=== PATIENT | male | born 1940 | race Caucasian/White ===

== ENCOUNTER → 2016-07-31 | Outpatient (CLI) | payer OTHER, BC ==
[~2016-07-31] VITALS: Ht 167.6 cm; Wt 101.0 kg
[~2016-07-31] MED LIST: APR50 PO; ASCO500T16 PO; ASPI81TA28 PO; ATOR-24 PO; B-COTAB18 PO; CHRO1TAB2 PO; CYM/30 PO; DOCU-94 PO; ERGO1CAP35 PO; ERGO500037 PO; FENO48TA9 PO; FINA5TAB PO; FRS/40 PO; FURO40TA3 PO; GABA1CAP4 PO; GARL400T4 PO; GARL500C5 PO; GLC5 PO; INSDGIPEN SC; INSU50IN SC; INSU50IN3 PO; INSU50IN3 SC; LISI-729 PO; LRS10 PO; MCTP EXT; METO1TAB31 PO; METO25TA3 PO; MULT-506 PO; NRN100 PO; NVLGI/PEN SC; OMEG10007 PO; OMEG120013 PO; OMEGCAP2 PO; OMG3 PO; SOLI5TAB2 PO; ULT50X PO; VTMD PO; ZINC1TAB PO
[2016-07-31 13:12] VITALS: BP 132/78; PULSE 98; Ht 167.6 cm; Wt 101.0 kg
== END | disposition home or self-care (01) ==
LOC: C.NEUR 12:49
PROVIDERS: ATTEND Internal Medicine Pulmonary Disease
DX: G47.30 Sleep apnea, unspecified (principal); E66.9 Obesity, unspecified; I10 Essential (primary) hypertension

== ENCOUNTER → 2016-08-07 | Outpatient (CLI) | payer OTHER, BC ==
[2016-08-07 17:24] LABS: BASO % 0.3 %; BASO ABS # 0.03 K/uL (0-0.2); COMPLETE YES; EOS % 1.5 %; HEMATOCRIT 46.6 % (42-52); IG% 0.2 %; LYMPH ABS # 1.27 K/uL (1.2-3.4); MEAN CELL VOLUME 96.1 fL (80-100); MEAN CORPUSCULAR HGB CONC 34.3 g/dl (32-36); MEAN PLATELET VOLUME 11.8 fL (7.4-10.4); MONO % 11.4 %; NEUT % 72.6 %; PLATELET COUNT 202 K/uL (130-400); RED BLOOD COUNT 4.85 M/uL (4.7-6.1)
[2016-08-07 17:59] LABS: BLOOD UREA NITROGEN 45 mg/dl (7-18); BUN/CREATININE RATIO 19.7 (10-20); CARBON DIOXIDE 30 mmol/L (21-32); CHLORIDE 104 mmol/L (98-107); GLUCOSE 151 mg/dl (70-99); POTASSIUM 5.1 mmol/L (3.5-5.1); SODIUM 142 mmol/L (136-145)
[2016-08-08 06:41] LABS: ESTIMATED AVERAGE GLUCOSE 183 mg/dl; HA1C FLAG Normal (Normal)
--- NOTE | 2016-08-14 10:04 | CODING QUERY MEDICAL NECESSITY ---
SUPPORTING DIAGNOSIS NEEDED A supporting diagnosis is required for the test/procedure performed on this patient in order for us to be reimbursed by the patient's insurance. Please provide a supporting diagnosis for the following test/procedure listed below next to the test name along with your signature. *If there is no additional diagnosis for this patient that would support the following test/procedure please document that below next to the test/procedure. Test(s)/Procedure(s) that require a supporting diagnosis: DOS 08/07 * Vitamin B12 DIAGNOSIS: Provider Signature: Date: Thank you Delores Boateng Health Information Management Once completed, please kindly fax back to [phone] For questions please call [phone]
== END | disposition home or self-care (01) ==
LOC: C.LABPBG 15:16
PROVIDERS: ATTEND Internal Medicine Geriatric Medicine
DX: I12.9 Hypertensive chronic kidney disease with stage 1 through stage 4 chronic kidney disease, or unspecified chronic kidney disease (principal); N18.3 Chronic kidney disease, stage 3 (moderate); E55.9 Vitamin D deficiency, unspecified; E11.42 Type 2 diabetes mellitus with diabetic polyneuropathy; M54.5 Low back pain

== ENCOUNTER 2016-08-25 12:13 | Inpatient (IN) | payer OTHER, BC ==
[~2016-08-25] VITALS: Ht 167.6 cm; Wt 93.7 kg
[~2016-08-25 12:13] MED LIST changes: -APR50 PO; -ASCO500T16 PO; -B-COTAB18 PO; -DOCU-94 PO; -ERGO1CAP35 PO; -ERGO500037 PO; -FURO40TA3 PO; -GABA1CAP4 PO; -GARL400T4 PO; -GLC5 PO; -INSDGIPEN SC; -INSU50IN SC; -INSU50IN3 PO; -LRS10 PO; -MCTP EXT; -METO1TAB31 PO; -NRN100 PO; -NVLGI/PEN SC; -OMEG120013 PO; -OMEGCAP2 PO; -OMG3 PO; -ULT50X PO; -ZINC1TAB PO
[2016-08-25] MEDS ORDERED: SODIUM CHLORIDE 0.9% 1000ML 1,000 ML IV STA (12:32)
[2016-08-25] MEDS ORDERED: SODIUM CHLORIDE 0.9% 1000ML 500 ML IV STA (12:32)
--- NOTE | 2016-08-25 13:03 | EMERGENCY ROOM VISIT NOTE ---
History Report prepared by Jackeline: Stephan Quintanilla Under the Supervision of: Dr. Michel See M.D. First contact with patient: 12:26 Chief Complaint: FALL Stated Complaint: FREQUENT FALLS/ EVAL History of Present Illness The patient is a 76 year old male who presents to the Emergency Room for evaluation of multiple falls occurring over the past week. Per nursing staff, the patient has had five falls this week. She states that his most recent fall was last night when he was bending over to feed his dog. The patient notes that he his head on the fall last night, but did not lose consciousness. He has a history of diabetes and states that he has had a lot of trouble keep his sugars down lately. He also complains of increased weakness, especially in his legs. The patient denies any neck pain, urinary symptoms, fever, or vomiting. He has no history of stroke. He notes that he lives alone. Source of History: patient Onset: past week Quality: other (falls) Timing: other (episodes) Associated Symptoms: + weakness (generalized, especially in the legs), No fevers, No neck pain, No urinary symptoms, No vomiting Review of Systems See HPI for pertinent positives & negatives. A total of 10 systems reviewed and were otherwise negative. Past Medical & Surgical Medical Problems: (1) ARF (acute renal failure) (2) Enlarged prostate (3) Hepatitis (4) Type II diabetes mellitus Family History Diabetes mellitus Heart disease Hypertension Social History Smoking Status: Former Smoker Alcohol Use: none Drug Use: none Marital Status: Housing Status: lives alone Occupation Status: retired Current/Historical Medications Scheduled Aspirin (Aspirin Ec), 81 MG PO HS Atorvastatin (Lipitor), 40 MG PO QAM B-Complex Vitamins (Vitamin B Complex), 1 TAB PO DAILY Chromium (Chromium), 1 TAB PO QAM Duloxetine HCl (Cymbalta), 1 CAP PO DAILY Ergocalciferol (Vitamin D), 1 CAP PO MONTHLY Fenofibrate (Tricor), 48 MG PO DAILY Finasteride (Proscar), 5 MG PO DAILY Fish Oil ([place]-3), 1 CAP PO DAILY Furosemide (Lasix), 40 MG PO DAILY Garlic (Garlic), 1 CAP PO DAILY Insulin Lispro Protamine & Lis (Humalog Mix 50/50 Kwikpen), 60 UNITS SC QAM Insulin Lispro Protamine & Lis (Humalog Mix 50/50), 75 UNITS SC QPM Lisinopril (Zestril), 5 MG PO DAILY Metoprolol Succ (Toprol Xl) (Toprol-Xl), 25 MG PO DAILY Multivitamin (Multivitamin), 1 TAB PO DAILY Solifenacin Succinate (Vesicare), 5 MG PO DAILY Allergies Coded Allergies: No Known Allergies (Unverified , 08/25/16) Physical Exam Vital Signs Date Time Temp Pulse Resp B/P Pulse Ox O2 Delivery O2 Flow Rate FiO2 08/25/16 14:06 98 18 160/105 99 Room Air 08/25/16 13:53 96 08/25/16 12:21 36.7 100 18 163/83 99 Room Air Physical Exam GENERAL: Patient is in no acute distress. HEENT: No acute trauma, normocephalic atraumatic, mucous membranes moist, no nasal congestion, no scleral icterus. NECK: No stridor, no adenopathy, no meningismus, trachea is midline. LUNGS: Clear to auscultation bilaterally, no wheeze, no rhonchi, breath sounds equal. HEART: Without murmurs gallops or rubs, regular rate and rhythm. ABDOMEN: Soft, nontender, bowel sounds positive, no hernias, no peritonitis. EXTREMITIES: No cyanosis or edema, full range of motion of all the joints without pain or difficulty, no signs for acute trauma. NEUROLOGIC: Oriented x 3, no acute motor or sensory deficits, no focal weakness. SKIN: No rash, no jaundice, no diaphoresis. Medical Decision & Procedures ER Provider Diagnostic Interpretation: X ray results and stated below per my interpretation and radiologist interpretation. Other radiology results and stated below per my review and radiologist interpretation: CT SCAN OF THE BRAIN WITHOUT IV CONTRAST FINDINGS: Brain parenchyma: There are age-related involutional changes noting mild subcortical and periventricular microangiopathic change. There is no hemorrhage, mass effect, or evidence of acute territorial ischemia by CT criteria. Clark-white matter is preserved. No extra-axial fluid collection is seen. Ventricles, sulci, cisterns: Prominent secondary to involutional change. Intracranial vasculature: There is atherosclerotic calcification of the cavernous carotid and vertebral arteries. Calvarium: Unremarkable. A sebaceous cyst is incidentally noted in the suboccipital scalp. Sinuses and mastoids: The visualized paranasal sinuses are clear. The mastoid air cells are well pneumatized. Orbits: The bony orbits are grossly intact. There are bilateral ocular lens implants. IMPRESSION: There is no hemorrhage, mass effect, or evidence of acute territorial ischemia by CT criteria. Electronically signed by: Michel Dickerson M.D. SINGLE VIEW CHEST FINDINGS: An AP, portable, upright chest radiograph is compared to study dated 03/23/2015. The heart is enlarged and there is atherosclerotic calcification of the thoracic aorta. The pulmonary vasculature is noncongested. Chronic elevation of the right hemidiaphragm and interstitial thickening are similar to previous. There is no evidence of airspace consolidation or pleural effusion. No pneumothorax is seen. The skeletal structures are osteopenic. Degenerative changes noted throughout the thoracic spine. IMPRESSION: Cardiac enlargement with no acute cardiopulmonary abnormality. Electronically signed by: Michel Dickerson M.D. Laboratory Results 08/25/16 13:04 Red Blood Count 4.99, Mean Corpuscular Volume 94.6, Mean Corpuscular Hemoglobin 33.5, Mean Corpuscular Hemoglobin Concent 35.4, Mean Platelet Volume 11.5, Neutrophils (%) (Auto) 78.1, Lymphocytes (%) (Auto) 9.1, Monocytes (%) (Auto) 12.2, Eosinophils (%) (Auto) 0.2, Basophils (%) (Auto) 0.2, Neutrophils # (Auto ) 8.34, Lymphocytes # (Auto) 0.97, Monocytes # (Auto) 1.30, Eosinophils # (Auto ) 0.02, Basophils # (Auto) 0.02 08/25/16 13:04 Test 08/25/16 12:23 08/25/16 13:04 08/25/16 14:00 Bedside Glucose 271 mg/dl (70-99) White Blood Count 10.67 K/uL (4.8-10.8) Red Blood Count 4.99 M/uL (4.7-6.1) Hemoglobin 16.7 g/dL (14.0-18.0) Hematocrit 47.2 % (42-52) Mean Corpuscular Volume 94.6 fL (80-100) Mean Corpuscular Hemoglobin 33.5 pg (25-34) Mean Corpuscular Hemoglobin Concent 35.4 g/dl (32-36) Platelet Count 227 K/uL (130-400) Mean Platelet Volume 11.5 fL (7.4-10.4) Neutrophils (%) (Auto) 78.1 % Lymphocytes (%) (Auto) 9.1 % Monocytes (%) (Auto) 12.2 % Eosinophils (%) (Auto) 0.2 % Basophils (%) (Auto) 0.2 % Neutrophils # (Auto) 8.34 K/uL (1.4-6.5) Lymphocytes # (Auto) 0.97 K/uL (1.2-3.4) Monocytes # (Auto) 1.30 K/uL (0.11-0.59) Eosinophils # (Auto) 0.02 K/uL (0-0.5) Basophils # (Auto) 0.02 K/uL (0-0.2) RDW Standard Deviation 45.5 fL (36.4-46.3) RDW Coefficient of Variation 13.2 % (11.5-14.5) Immature Granulocyte % (Auto) 0.2 % Immature Granulocyte # (Auto) 0.02 K/uL (0.00-0.02) Prothrombin Time 10.9 SECONDS (9.0-12.0) Prothromb Time International Ratio 1.0 (0.9-1.1) Activated Partial Thromboplast Time 24.5 SECONDS (21.0-31.0) Partial Thromboplastin Ratio 0.9 Anion Gap 10.0 mmol/L (3-11) Est Creatinine Clear Calc Drug Dose 23.1 ml/min Estimated GFR () 22.7 Estimated GFR (Non- 19.6 BUN/Creatinine Ratio 23.8 (10-20) Estimated Average Glucose 180 mg/dl Hemoglobin A1c 7.9 % (4.5-5.6) Calcium Level 9.2 mg/dl (8.5-10.1) Total Bilirubin 0.6 mg/dl (0.2-1) Aspartate Amino Transf (AST/SGOT) 42 U/L (15-37) Alanine Aminotransferase (ALT/SGPT) 37 U/L (12-78) Alkaline Phosphatase 54 U/L (45-117) Total Creatine Kinase 908 U/L (39-308) Troponin I < 0.015 ng/ml (0-0.045) Total Protein 7.5 gm/dl (6.4-8.2) Albumin 3.8 gm/dl (3.4-5.0) Globulin 3.7 gm/dl (2.5-4.0) Albumin/Globulin Ratio 1.0 (0.9-2) Thyroid Stimulating Hormone (TSH) 1.790 uIu/ml (0.300-4.500) Urine Color YELLOW Urine Appearance CLEAR (CLEAR) Urine pH 5.5 (4.5-7.5) Urine Specific [place] 1.011 (1.000-1.030) Urine Protein NEG (NEG) Urine Glucose (UA) 1+ (NEG) Urine Ketones NEG (NEG) Urine Occult Blood TRACE (NEG) Urine Nitrite NEG (NEG) Urine Bilirubin NEG (NEG) Urine Urobilinogen NEG (NEG) Urine Leukocyte Esterase NEG (NEG) Urine WBC (Auto) 0 /hpf (0-5) Urine RBC (Auto) 0-4 /hpf (0-4) Urine Hyaline Casts (Auto) 0 /lpf (0-5) Urine Epithelial Cells (Auto) 0-5 /lpf (0-5) Urine Bacteria (Auto) NEG (NEG) Laboratory results reviewed by me. Medications Administered Medications (Trade) Dose Ordered Sig/Ramana Route Start Time Stop Time Status Last Admin Dose Admin Sodium Chloride 500 ml @ 999 mls/hr Q31M STAT IV 08/25/16 12:32 08/25/16 13:02 DC 08/25/16 13:08 999 MLS/HR Sodium Chloride (Nss 1000ml) 1,000 ml @ 200 mls/hr Q5H STAT IV 08/25/16 12:32 08/25/16 16:30 DC 08/25/16 13:08 200 MLS/HR ECG Indication: weakness Rate (beats per minute): 100 Rhythm: normal sinus Findings: RBBB, no acute ischemic change, no ectopy ED Course 1229: The patient was evaluated in room B7. A complete history and physical exam was performed. 1232: Ordered Sodium Chloride 1000 ml @ 200 mls/hr IV, Sodium Chloride 500 ml @ 999 mls/hr IV. 1401: Upon reexamination the patient is resting comfortably. I discussed results and treatment plan with the patient. He verbalizes agreement and understanding. The patient will be evaluated for further management. Medical Decision The patient is a 76 year old male who presents to the ED with complaints of multiple falls. Differential diagnoses considered include dehydration, UTI, infection, intracranial bleeding, anemia, electrolyte imbalance, thyroid disorder, stroke, debilitation, as well as other etiologies were considered There is no leukocytosis or concerning anemia. Renal panel testing shows dehydration with acute renal failure. There was no hepatitis. The patient appears to be in a euthyroid state. Urinalysis does not show infection. EKG shows a normal sinus rhythm with a right bundle branch block, no acute ischemia. Cardiac enzyme testing times one is not consistent with acute cardiac injury. Chest film does not show pneumonia or CHF. Brain CT shows no acute bleed or mass effect. On exam, there were no focal neurologic deficits to suggest stroke. Patient appeared dehydrated clinically and by laboratory testing. I think this is a good part of why he feels so weak and why he is falling. He was given IV saline. The patient is not functioning well at home. With the acute renal failure and dehydration, admission/observation is warranted. I spoke to the patient and case management. The on-call hospitalist was consulted. Consults Time Called: 1345 Consulting Physician: Dr. Jonnathan SETHI Returned Call: 1401 Discussed the patient's case. The patient will be evaluated for further management. Impression Primary Impression: Acute renal failure Additional Impressions: Frequent falls Weakness Scribe Attestation The scribe's documentation has been prepared under my direction and personally reviewed by me in its entirety. I confirm that the note above accurately reflects all work, treatment, procedures, and medical decision making performed by me. Departure Information Dispostion Being Evaluated By Hospitalist Referrals Corey Craven M.D. (PCP) Patient Instructions My [facility] Problem Qualifiers
--- NOTE | 2016-08-25 13:12 | DIAGNOSTIC IMAGING REPORT ---
SINGLE VIEW CHEST CLINICAL HISTORY: Weakness. Change in mental status. FINDINGS: An AP, portable, upright chest radiograph is compared to study dated 03/23/2015. The heart is enlarged and there is atherosclerotic calcification of the thoracic aorta. The pulmonary vasculature is noncongested. Chronic elevation of the right hemidiaphragm and interstitial thickening are similar to previous. There is no evidence of airspace consolidation or pleural effusion. No pneumothorax is seen. The skeletal structures are osteopenic. Degenerative changes noted throughout the thoracic spine. IMPRESSION: Cardiac enlargement with no acute cardiopulmonary abnormality. Electronically signed by: Michel Dickerson M.D. 08/25/2016 1:11 PM Dictated Date/Time: 08/25/2016 1:09 PM
[2016-08-25 13:20] LABS: BASO % 0.2 %; BASO ABS # 0.02 K/uL (0-0.2); COMPLETE YES; EOS % 0.2 %; HEMATOCRIT 47.2 % (42-52); IG% 0.2 %; LYMPH % 9.1 %; LYMPH ABS # 0.97 K/uL (1.2-3.4); MEAN CELL VOLUME 94.6 fL (80-100); MEAN CORPUSCULAR HEMOGLOBIN 33.5 pg (25-34); MEAN CORPUSCULAR HGB CONC 35.4 g/dl (32-36); MEAN PLATELET VOLUME 11.5 fL (7.4-10.4); MONO % 12.2 %; NEUT % 78.1 %; PLATELET COUNT 227 K/uL (130-400); RED BLOOD COUNT 4.99 M/uL (4.7-6.1); WHITE BLOOD COUNT 10.67 K/uL (4.8-10.8)
[2016-08-25 13:35] LABS: ALT/SGPT 37 U/L (12-78); AST/SGOT 42 U/L (15-37); BLOOD UREA NITROGEN 71 mg/dl (7-18); BUN/CREATININE RATIO 23.8 (10-20); CALCIUM 9.2 mg/dl (8.5-10.1); CARBON DIOXIDE 24 mmol/L (21-32); CHLORIDE 106 mmol/L (98-107); GLUCOSE 204 mg/dl (70-99); POTASSIUM 5.2 mmol/L (3.5-5.1); SODIUM 140 mmol/L (136-145)
[2016-08-25] MEDS ORDERED: B-COTAB18 PO (13:37)
[2016-08-25] MEDS ORDERED: INSU50IN SC (13:37)
--- NOTE | 2016-08-25 13:39 | DIAGNOSTIC IMAGING REPORT ---
CT SCAN OF THE BRAIN WITHOUT IV CONTRAST CLINICAL HISTORY: Change in mental status. COMPARISON STUDY: MRI of the brain dated 10/22/2014. TECHNIQUE: Unenhanced axial CT scan of the brain is performed from the vertex to the skull base. CT DOSE: 614.27 mGy.cm FINDINGS: Brain parenchyma: There are age-related involutional changes noting mild subcortical and periventricular microangiopathic change. There is no hemorrhage, mass effect, or evidence of acute territorial ischemia by CT criteria. Clark-white matter is preserved. No extra-axial fluid collection is seen. Ventricles, sulci, cisterns: Prominent secondary to involutional change. Intracranial vasculature: There is atherosclerotic calcification of the cavernous carotid and vertebral arteries. Calvarium: Unremarkable. A sebaceous cyst is incidentally noted in the suboccipital scalp. Sinuses and mastoids: The visualized paranasal sinuses are clear. The mastoid air cells are well pneumatized. Orbits: The bony orbits are grossly intact. There are bilateral ocular lens implants. IMPRESSION: There is no hemorrhage, mass effect, or evidence of acute territorial ischemia by CT criteria. Electronically signed by: Michel Dickerson M.D. 08/25/2016 1:38 PM Dictated Date/Time: 08/25/2016 1:36 PM
[2016-08-25 13:42] LABS: PARTIAL THROMBOPLASTIN RATIO 0.9; PROTHROMBIN TIME (PATIENT) 10.9 SECONDS (9.0-12.0)
[2016-08-25 13:46] LABS: ALKALINE PHOSPHATASE 54 U/L (45-117)
[2016-08-25 14:11] LABS: URINE APPEARANCE CLEAR (CLEAR); URINE BILIRUBIN NEG (NEG); URINE COLOR YELLOW; URINE EPITHELIAL CELL AUTO 0-5 /lpf (0-5); URINE NITRITE NEG (NEG); URINE PH 5.5 (4.5-7.5); URINE SPECIFIC GRAVITY 1.011 (1.000-1.030); UROBILINOGEN NEG (NEG); ZZURINE CULT IF INDIC CATH NO
[2016-08-25 14:12] LABS: MANUAL MICROSCOPIC REQUIRED? NO; REVIEW REQ? NO
[2016-08-25] MEDS ORDERED: POLYETHYLENE (MIRALAX) 17 GM PACK PO PRN (14:30)
[2016-08-25] MEDS ORDERED: MAGNESIUM HYDROXIDE SUSP 30 ML UDC PO PRN (14:30)
[2016-08-25] MEDS ORDERED: ALUMINUM/MAGNESIUM/SIMETH (MAALOX MAX) 30 ML UDC PO PRN (14:30)
[2016-08-25] MEDS ORDERED: ONDANSETRON INJ 2 MG/ML 2 ML VIAL IV PRN (14:30)
[2016-08-25 14:57] LABS: ESTIMATED AVERAGE GLUCOSE 180 mg/dl; HA1C FLAG Normal (Normal)
[2016-08-25] MEDS ORDERED: GLUCAGON FOR INJ 1 MG VIAL SQ PRN (15:45)
[2016-08-25] MEDS ORDERED: GLUCOSE 10 TABS/TUBE PO PRN (15:45)
[2016-08-25] MEDS ORDERED: DEXTROSE 50% 50 ML SYR IV PRN (15:45)
[2016-08-25] MEDS ORDERED: GLUCOSE 40% GEL 15 GM TUBE PO PRN (15:45)
--- NOTE | 2016-08-25 16:04 | HISTORY & PHYSICAL EXAMINATION ---
DATE OF ADMISSION: 08/25/2016 CHIEF COMPLAINT: Fall. HISTORY OF PRESENT ILLNESS: A 76-year-old male who resides at home, comes to Emergency Room for evaluation of multiple falls that occurred over past week. As per ER records, the patient had about 5 falls this week. It states that most recent fall was last night when he was bending over to feed his dog. The patient noted that when he fell last night, he did not lose consciousness. He has history of diabetes and he had trouble keeping his sugars down lately. He also has increased weakness, especially in his legs to the point where he cannot walk. He denies any fever, urinary symptoms, neck pain, vomiting, diarrhea, nausea. He lives alone. REVIEW OF SYSTEMS: Negative except as above. Ten out of 14 systems were reviewed. PAST MEDICAL HISTORY: Significant for BPH, hepatitis, type 2 diabetes. FAMILY HISTORY: Diabetes, heart disease. SOCIAL HISTORY: Does not smoke. Does not drink. Does not use drugs. Lives alone. ALLERGIES: He has no known allergies. CURRENT MEDICATIONS: Aspirin 81 mg p.o. daily, atorvastatin 40 mg p.o. daily, B complex 1 tablet p.o. daily, chromium 1 tablet p.o. daily, duloxetine 1 capsule p.o. daily, ergocalciferol 1 capsule p.o. monthly, fenofibrate 48 mg p.o. daily, finasteride 5 mg p.o. daily, fish oil 1 capsule p.o. daily, Furosemide 40 mg p.o. daily, garlic 1 capsule p.o. daily, Humalog 50/50 KwikPen 60 units in the morning and 75 units at night, lisinopril 5 mg daily, Toprol-XL 25 mg p.o. daily, multivitamin 1 tablet p.o. daily, solifenacin 5 mg p.o. daily. PHYSICAL EXAMINATION: VITAL SIGNS: Temperature 36.7, pulse 98, respirations 18, blood pressure 160/105, 99% on room air. GENERAL: Not in acute distress. HEENT: Normocephalic, atraumatic. PERRLA, EOMI. Mouth moist, no lesions. NECK: No JVD. Trachea midline. Thyroid is not enlarged. LUNGS: Clear to auscultation bilateral. No wheezes, no rhonchi. HEART: S1, S2. RRR. ABDOMEN: Soft, nontender, nondistended. Bowel sounds present bilateral. EXTREMITIES: No clubbing, cyanosis, edema. NEUROLOGICAL: Alert, oriented x3. Motor sensory normal. Deep tendon reflexes 2+ bilateral. SKIN: No rash. No jaundice. DIAGNOSTIC INTERPRETATION: CT scan of the head - no hemorrhage, no acute stroke. Chest x-ray - cardiac enlargement, no acute cardiopulmonary abnormality. LABS: CBC is normal. BMP: Sodium 140, potassium 5.2, chloride 106, CO2 of 24, BUN of 71, creatinine of 3.0, glucose of 204. Calcium 9.2, total bili 0.6. LFTs normal. Total protein 7.5, troponin less than 0.015. TSH 1.79. EK beats per minute, normal sinus rhythm, right bundle branch block, no acute ST/T wave changes. ASSESSMENT AND PLAN: This is a 76-year-old male who comes to Emergency Room for evaluation of multiple falls. 1. Multiple falls, likely related to dehydration. Fall precautions, physical therapy, Occupational therapy evaluation and start normal saline for hydration. Hold Lasix. 2. Acute renal failure with creatinine of 3.0, baseline is 1.6, likely secondary to prerenal azotemia. We will start patient on normal saline at 125 mL per hour and monitor creatinine. Possible enlarged prostate. We will insert Ervin catheter tip. Hold BOAZ inhibitor and aspirin. 3. Type 2 diabetes mellitus, unknown hemoglobin A1c, which we will check. The patient was on 50/50 KwikPen Humalog taken 60 units in the morning and 75 units at night. Will start patient on Glargine 30 units twice a day and sliding scale as well as will check sugars before meals plus at bedtime. 4. History of benign prostatic hypertrophy. Continue Proscar, insert Ervin catheter. 5. Uncontrolled HTN, hold BOAZ, continue Bblockers, Hydralazine IV Prn sbp>150 mmhg. 6. Deep vein thrombosis and gastrointestinal prophylaxis. The patient is a full code. TIME SPENT ON DOING THIS ADMISSION: 40 minutes. SUMEET
--- NOTE | 2016-08-25 16:06 | DIAGNOSTIC IMAGING REPORT ---
ULTRASOUND KIDNEYS AND BLADDER CLINICAL HISTORY: Frequent falls. Unspecified obstruction. COMPARISON STUDY: Abdominal ultrasound dated 11/02/2013. TECHNIQUE: Real-time, grayscale, and color flow sonography of the kidneys and bladder is performed. Images are reviewed in the transverse and longitudinal planes. FINDINGS: Kidneys: The kidneys are atrophic. The right kidney measures 10.6 cm in length and the left kidney measures 10.7 cm in length. There is no hydronephrosis. No shadowing renal calculi are identified. There is no sonographic evidence of solid mass lesion. A 3.6 cm cyst is noted in the left lower pole. This was also seen in 2013. No perinephric fluid is identified. Bladder: The bladder is normal in appearance. Bilateral ureteral jets were seen. IMPRESSION: 1. The kidneys are atrophic and without hydronephrosis. 2. The bladder is normal as visualized. Electronically signed by: Michel Dickerson M.D. 08/25/2016 4:05 PM Dictated Date/Time: 08/25/2016 4:03 PM
[2016-08-25 16:32] VITALS: BP 161/90; PULSE 102; TEMP 36.6; O2SAT 94; Ht 167.6 cm; Wt 93.7 kg
[2016-08-25] MEDS: SODIUM CHLORIDE 0.45% 1000ML 1,000 ML IV SCH ×2 (17:13→22:02)
[2016-08-25] MEDS ORDERED: MICONAZOLE NITRATE POWDER 43 GM EXT PRN (17:45)
[2016-08-25] MEDS ORDERED: NURSING DECISION MEDICATION ORDER SCH (17:45)
[2016-08-25] MEDS: INSULIN ASPART 100 UNITS/ML 3 ML PEN SC SCH ×2 (17:52→20:40)
[2016-08-25] MEDS ORDERED: INSULIN GLARGINE PER UNIT 30 UNITS in SYRINGE 0 ML SC SCH (21:00)
[2016-08-25] MEDS ORDERED: INSULIN GLARGINE PER SC SCH (21:00)
[2016-08-25] MEDS: ASPIRIN 81 MG ECTAB PO SCH (21:21)
[2016-08-25] MEDS: INSULIN GLARGINE SOLOSTAR 100 UNITS/ML 3 ML PEN SC SCH (21:23)
[2016-08-25] MEDS: HEPARIN SOD 5000 UNIT/0.5 ML CARP SQ SCH (21:24)
[2016-08-25] MEDS ORDERED: LORAZEPAM 0.5 MG TAB ONE (21:58)
[2016-08-25] MEDS ORDERED: NURSING VERBAL MED ORDER ONE ×2 (22:00→23:00)
[2016-08-25] MEDS: LORAZEPAM 0.5 MG TAB PO PRN (22:02)
[2016-08-25 22:59] VITALS: BP 167/83; PULSE 80; TEMP 36.5; O2SAT 94
[2016-08-25] MEDS ORDERED: DiphenhydrAMINE HCL 50 MG/ML VIAL ONE (22:59)
[2016-08-25] MEDS ORDERED: DiphenhydrAMINE HCL 50 MG/ML VIAL IV STA (23:00)
[2016-08-25] MEDS ORDERED: LORAZEPAM 0.5 MG TAB PO STA (23:00)
[2016-08-26] MEDS ORDERED: PRAMIPEXOLE DIHYDROCHLORIDE 0.25MG TAB PO STA (01:00)
[2016-08-26] MEDS ORDERED: ACETAMINOPHEN IV 100 ML IV PRN (01:00)
[2016-08-26] MEDS ORDERED: HALOPERIDOL LACTATE 5 MG/ML 1 ML VIAL IM STA (02:51)
[2016-08-26] MEDS ORDERED: NURSING VERBAL MED ORDER ONE (03:00)
[2016-08-26] MEDS: HEPARIN SOD 5000 UNIT/0.5 ML CARP SQ SCH ×3 (05:32→21:21)
[2016-08-26] MEDS: SODIUM CHLORIDE 0.45% 1000ML 1,000 ML IV SCH ×3 (05:32→21:34)
[2016-08-26] MEDS: DULOXETINE (CYMBALTA) 30 MG CAP PO SCH (07:43)
[2016-08-26] MEDS: MULTIVITAMIN TAB PO SCH (07:44)
[2016-08-26] MEDS: FENOFIBRATE 48 MG TAB PO SCH (07:44)
[2016-08-26] MEDS: FINASTERIDE 5 MG TAB PO SCH (07:44)
[2016-08-26] MEDS: METOPROLOL SUCC 25MG EXT REL TAB PO SCH (07:45)
[2016-08-26 08:19] VITALS: BP_SYST 171; BP_SYST 201; BP_DIAS 94; BP_DIAS 95; PULSE 102; TEMP 36.5; O2SAT 96
[2016-08-26 08:46] LABS: BASO % 0.3 %; BASO ABS # 0.03 K/uL (0-0.2); COMPLETE YES; EOS % 0.6 %; HEMATOCRIT 47.3 % (42-52); IG% 0.1 %; LYMPH ABS # 0.92 K/uL (1.2-3.4); MEAN CELL VOLUME 92.4 fL (80-100); MEAN CORPUSCULAR HEMOGLOBIN 32.4 pg (25-34); MEAN CORPUSCULAR HGB CONC 35.1 g/dl (32-36); MEAN PLATELET VOLUME 11.3 fL (7.4-10.4); MONO % 10.9 %; NEUT % 79.1 %; PLATELET COUNT 214 K/uL (130-400); RED BLOOD COUNT 5.12 M/uL (4.7-6.1); WHITE BLOOD COUNT 10.23 K/uL (4.8-10.8)
[2016-08-26] MEDS: INSULIN ASPART 100 UNITS/ML 3 ML PEN SC SCH ×4 (08:57→21:00)
[2016-08-26] MEDS: INSULIN GLARGINE SOLOSTAR 100 UNITS/ML 3 ML PEN SC SCH ×2 (08:58→21:21)
[2016-08-26] MEDS ORDERED: ATORVASTATIN 40 MG TAB PO SCH (09:00)
[2016-08-26 09:18] LABS: BUN/CREATININE RATIO 23.1 (10-20); CALCIUM 8.9 mg/dl (8.5-10.1); CREATININE 2.1 mg/dl (0.60-1.40); POTASSIUM 4.4 mmol/L (3.5-5.1)
[2016-08-26] MEDS ORDERED: GABAPENTIN 100 MG CAP PO ONE (11:45)
--- NOTE | 2016-08-26 12:40 | Progress Note ---
Subjective Date of Service: Aug 26, 2016. Subjective Pt evaluation today including: conversation w/ patient, physical exam, chart review, lab review, review of studies, review of inpatient medication list Patient seen and evaluated. Complaining of lower extremity pain weakness and was agitated overnight. Received Haldol, Benadryl, Ativan and did not sleep through the night. Currently is excessively drowsy. Does respond when he chooses to questions and follows commands. ROS deferred as patient intermittently will say yes/no but cooperation is limited. Problem List Medical Problems: (1) Acute renal failure Status: Acute (2) Frequent falls Status: Acute (3) Weakness Status: Acute Review of Systems Deferred due to excessive drowsiness. See HPI. Objective Vital Signs Date Time Temp Pulse Resp B/P Pulse Ox O2 Delivery O2 Flow Rate FiO2 08/26/16 08:19 36.5 102 18 201/94 96 Room Air 171/95 08/26/16 08:00 Room Air 08/26/16 00:00 Room Air 08/25/16 22:59 36.5 80 20 167/83 94 Room Air 08/25/16 20:00 Room Air 08/25/16 16:32 36.6 102 12 161/90 94 Room Air 08/25/16 15:15 102 18 157/89 98 Room Air 08/25/16 14:06 98 18 160/105 99 Room Air 08/25/16 13:53 96 Physical Exam General Appearance: WD/WN, no apparent distress Eyes: sclerae normal Neck: supple, no JVD, trachea midline Respiratory/Chest: lungs clear, normal breath sounds, no respiratory distress, no accessory muscle use Cardiovascular: regular rate, rhythm, no gallop, no murmur Abdomen: normal bowel sounds, non tender, soft Extremities: no pedal edema Neurologic/Psychiatric: + pertinent finding (drowsy) Skin: normal color, warm/dry Laboratory Results Last 24 Hours Test 08/25/16 13:04 08/25/16 14:00 08/25/16 16:47 08/25/16 20:30 White Blood Count 10.67 K/uL Red Blood Count 4.99 M/uL Hemoglobin 16.7 g/dL Hematocrit 47.2 % Mean Corpuscular Volume 94.6 fL Mean Corpuscular Hemoglobin 33.5 pg Mean Corpuscular Hemoglobin Concent 35.4 g/dl Platelet Count 227 K/uL Mean Platelet Volume 11.5 fL Neutrophils (%) (Auto) 78.1 % Lymphocytes (%) (Auto) 9.1 % Monocytes (%) (Auto) 12.2 % Eosinophils (%) (Auto) 0.2 % Basophils (%) (Auto) 0.2 % Neutrophils # (Auto) 8.34 K/uL Lymphocytes # (Auto) 0.97 K/uL Monocytes # (Auto) 1.30 K/uL Eosinophils # (Auto) 0.02 K/uL Basophils # (Auto) 0.02 K/uL RDW Standard Deviation 45.5 fL RDW Coefficient of Variation 13.2 % Immature Granulocyte % (Auto) 0.2 % Immature Granulocyte # (Auto) 0.02 K/uL Prothrombin Time 10.9 SECONDS Prothromb Time International Ratio 1.0 Activated Partial Thromboplast Time 24.5 SECONDS Partial Thromboplastin Ratio 0.9 Sodium Level 140 mmol/L Potassium Level 5.2 mmol/L Chloride Level 106 mmol/L Carbon Dioxide Level 24 mmol/L Anion Gap 10.0 mmol/L Blood Urea Nitrogen 71 mg/dl Creatinine 3.00 mg/dl Est Creatinine Clear Calc Drug Dose 23.1 ml/min Estimated GFR () 22.7 Estimated GFR (Non- 19.6 BUN/Creatinine Ratio 23.8 Random Glucose 204 mg/dl Estimated Average Glucose 180 mg/dl Hemoglobin A1c 7.9 % Calcium Level 9.2 mg/dl Total Bilirubin 0.6 mg/dl Aspartate Amino Transf (AST/SGOT) 42 U/L Alanine Aminotransferase (ALT/SGPT) 37 U/L Alkaline Phosphatase 54 U/L Total Creatine Kinase 908 U/L Troponin I < 0.015 ng/ml Total Protein 7.5 gm/dl Albumin 3.8 gm/dl Globulin 3.7 gm/dl Albumin/Globulin Ratio 1.0 Thyroid Stimulating Hormone (TSH) 1.790 uIu/ml Urine Color YELLOW Urine Appearance CLEAR Urine pH 5.5 Urine Specific Boelus 1.011 Urine Protein NEG Urine Glucose (UA) 1+ Urine Ketones NEG Urine Occult Blood TRACE Urine Nitrite NEG Urine Bilirubin NEG Urine Urobilinogen NEG Urine Leukocyte Esterase NEG Urine WBC (Auto) 0 /hpf Urine RBC (Auto) 0-4 /hpf Urine Hyaline Casts (Auto) 0 /lpf Urine Epithelial Cells (Auto) 0-5 /lpf Urine Bacteria (Auto) NEG Bedside Glucose 103 mg/dl 178 mg/dl Test 08/26/16 07:50 08/26/16 07:58 08/26/16 11:34 Bedside Glucose 138 mg/dl 151 mg/dl White Blood Count 10.23 K/uL Red Blood Count 5.12 M/uL Hemoglobin 16.6 g/dL Hematocrit 47.3 % Mean Corpuscular Volume 92.4 fL Mean Corpuscular Hemoglobin 32.4 pg Mean Corpuscular Hemoglobin Concent 35.1 g/dl Platelet Count 214 K/uL Mean Platelet Volume 11.3 fL Neutrophils (%) (Auto) 79.1 % Lymphocytes (%) (Auto) 9.0 % Monocytes (%) (Auto) 10.9 % Eosinophils (%) (Auto) 0.6 % Basophils (%) (Auto) 0.3 % Neutrophils # (Auto) 8.10 K/uL Lymphocytes # (Auto) 0.92 K/uL Monocytes # (Auto) 1.11 K/uL Eosinophils # (Auto) 0.06 K/uL Basophils # (Auto) 0.03 K/uL RDW Standard Deviation 44.0 fL RDW Coefficient of Variation 13.0 % Immature Granulocyte % (Auto) 0.1 % Immature Granulocyte # (Auto) 0.01 K/uL Sodium Level 141 mmol/L Potassium Level 4.4 mmol/L Chloride Level 110 mmol/L Carbon Dioxide Level 19 mmol/L Anion Gap 12.0 mmol/L Blood Urea Nitrogen 49 mg/dl Creatinine 2.10 mg/dl Est Creatinine Clear Calc Drug Dose 33.1 ml/min Estimated GFR () 34.9 Estimated GFR (Non- 30.1 BUN/Creatinine Ratio 23.1 Random Glucose 129 mg/dl Calcium Level 8.9 mg/dl Assessment and Plan This is a 76-year-old male who comes to Emergency Room for evaluation of multiple falls. Multiple Falls and LE Pain: Dehydration vs Diabetic Neuropathy vs Statin-Induced - PT/OT Evaluations - Hold Lasix and hydration with 1/2 NSS at 125 mL/hr - Hold Atorvastatin - Gabapentin 100 mg BID Acute Kidney Injury: Baseline 1.6 - Cr improved from 3.0 to 2.1 continue to hydrate and trend - Ervin catheter - question prostate interference - continue Proscar 5 mg daily - Hold Lisinopril and avoid nephrotoxic agents T2DM: - SSI - goal 100-180 with correction factor 35 and carb ratio 15 - Lantus 30 units SC BID Uncontrolled HTN: - Metoprolol Succ 24 mg daily and Hydralazine PRN DVT Prophylaxis: - Heparin 5000 units SC Q8H Code Status: - FULL RESUSCITATION Disposition: - PT/OT evaluations
[2016-08-26 15:02] VITALS: BP 175/97; PULSE 100; TEMP 36.5; O2SAT 95
[2016-08-26] MEDS: ACETAMINOPHEN 325 MG TAB PO PRN (16:01)
[2016-08-26] MEDS: ASPIRIN 81 MG ECTAB PO SCH (21:19)
[2016-08-26] MEDS: GABAPENTIN 100 MG CAP PO SCH (21:19)
[2016-08-26] MEDS: ZOLPIDEM TARTRATE 5 MG TAB PO PRN (21:35)
[2016-08-26 23:02] VITALS: BP 176/89; PULSE 98; TEMP 36.8; O2SAT 95
[2016-08-26] MEDS ORDERED: LABETALOL HCL IV 5 MG/ML 20ML IV PRN (23:45)
[2016-08-27] MEDS ORDERED: METOPROLOL TARTRATE 1 MG/ML VIAL IV SCH
[2016-08-27] MEDS ORDERED: METOPROLOL TARTRATE 25 MG TAB PO STA (00:25)
--- NOTE | 2016-08-27 00:34 | Progress Note ---
Progress Note Paged by nursing shortly after midnight noting persistent HTN. Patient otherwise stable at this time without symptoms Note made in H&P regarding PRN hydralazine. Review EMR vitals: systolic BP persistently > 160-170 Also note low grade tachycardia. Plan - Would avoid hydralazine due to increased likelihood of reflex tacchycardia on patient already with low grade tacchycardia - IV beta clarita cannot be given on medical unit - Patient noted to take PO Metoprolol succinate, due for next dose at 9am As such, I have given short-acting Metoprolol succinate 12.5 mg PO one time and follow HR/BP
[2016-08-27] MEDS: LORAZEPAM 0.5 MG TAB PO PRN ×2 (01:32→23:09)
[2016-08-27] MEDS: ACETAMINOPHEN 325 MG TAB PO PRN (02:09)
[2016-08-27] MEDS: HEPARIN SOD 5000 UNIT/0.5 ML CARP SQ SCH ×3 (05:23→20:49)
[2016-08-27] MEDS: SODIUM CHLORIDE 0.45% 1000ML 1,000 ML IV SCH ×3 (05:24→20:51)
[2016-08-27] MEDS: GABAPENTIN 100 MG CAP PO SCH ×2 (08:04→19:59)
[2016-08-27] MEDS: PYRIDOXINE HCL 50 MG TAB PO SCH (08:04)
[2016-08-27] MEDS: DULOXETINE (CYMBALTA) 30 MG CAP PO SCH (08:04)
[2016-08-27 08:05] VITALS: BP 160/102; PULSE 84; TEMP 36.4; O2SAT 98
[2016-08-27] MEDS: MULTIVITAMIN TAB PO SCH (08:05)
[2016-08-27] MEDS: FINASTERIDE 5 MG TAB PO SCH (08:05)
[2016-08-27] MEDS: METOPROLOL SUCC 25MG EXT REL TAB PO SCH (08:05)
[2016-08-27] MEDS: FENOFIBRATE 48 MG TAB PO SCH (08:06)
[2016-08-27 08:08] VITALS: O2SAT 98
[2016-08-27] MEDS: INSULIN GLARGINE SOLOSTAR 100 UNITS/ML 3 ML PEN SC SCH ×2 (08:14→20:49)
[2016-08-27] MEDS: INSULIN ASPART 100 UNITS/ML 3 ML PEN SC SCH ×4 (08:14→20:47)
[2016-08-27 08:35] LABS: BUN/CREATININE RATIO 20.2 (10-20); CALCIUM 9.3 mg/dl (8.5-10.1); CREATININE 1.9 mg/dl (0.60-1.40); POTASSIUM 4.7 mmol/L (3.5-5.1)
[2016-08-27 11:01] VITALS: BP 173/92; PULSE 93
[2016-08-27 13:03] VITALS: BP 173/92; PULSE 93; O2SAT 98
--- NOTE | 2016-08-27 14:49 | Progress Note ---
Subjective Date of Service: Aug 27, 2016. Subjective Pt evaluation today including: conversation w/ patient, conversation w/ family , physical exam, chart review, lab review, review of studies, review of inpatient medication list Doing okay, reported generalized weakness reported and not able to walk because of severe neuropathy Problem List Medical Problems: (1) Acute renal failure Status: Acute (2) Frequent falls Status: Acute (3) Weakness Status: Acute Review of Systems Constitutional: + fatigue, + weakness, No chills, No fever, No problem reported , No sweats, No weight loss Eyes: No diplopia, No discharge, No eye pain, No redness, No worsening of vision ENT: No dental problems, No hearing loss, No nasal symptoms, No sore throat, No tinnitus, No trouble swallowing, No unusual epistaxis Respiratory: No cough, No dyspnea at rest, No dyspnea on exertion, No hemoptysis, No shortness of breath, No sputum, No wheezing Cardiac: No PND, No chest pain, No claudication, No edema, No orthopnea, No palpitations Abdomen: No constipation, No diarrhea, No nausea, No pain, No vomiting Musculoskeletal: No calf pain, No joint pain, No muscle pain, No swelling Male : No dysuria, No hematuria, No incontinence, No nocturia more than once/ night, No slowing stream, No urinary frequency Neurologic: No balance problems, No memory loss, No numbness/tingling, No paralysis, No vertigo, No weakness Psychiatric: No anhedonism, No anxiety, No depression symptoms, No insomnia, No substance abuse Heme: No abnormal bleeding/bruising, No clotting problems, No night sweats, No swollen lymph nodes Endo: No excessive thirst, No excessive urination, No fatigue Skin: No bleeding, No color change, No itch, No new/changing skin lesions, No rash Objective Vital Signs Date Time Temp Pulse Resp B/P Pulse Ox O2 Delivery O2 Flow Rate FiO2 08/27/16 13:03 93 98 08/27/16 11:01 93 173/92 08/27/16 08:08 98 Room Air 08/27/16 08:05 36.4 84 16 160/102 98 Room Air 08/27/16 08:00 Room Air 08/27/16 00:05 Room Air 08/26/16 23:02 36.8 98 18 176/89 95 Room Air 08/26/16 20:05 Room Air 08/26/16 16:00 Room Air 08/26/16 15:02 36.5 100 16 175/97 95 Room Air Physical Exam General Appearance: WD/WN, no apparent distress, + obese Eyes: normal inspection, PERRL, EOMI, sclerae normal ENT: normal ENT inspection, hearing grossly normal, pharynx normal Neck: supple, no adenopathy, thyroid normal, no JVD, no carotid bruits, trachea midline Respiratory/Chest: chest non-tender, normal breath sounds, no respiratory distress, no accessory muscle use, + decreased breath sounds Cardiovascular: regular rate, rhythm, no edema, no gallop, no JVD, no murmur Abdomen: normal bowel sounds, non tender, soft, no organomegaly, no pulsatile mass, + pertinent finding (Ervin in place with yellow urine) Extremities: normal range of motion, non-tender, normal inspection, no pedal edema, no calf tenderness, normal capillary refill, pelvis stable 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, no motor/sensory deficits, alert, normal mood/affect, oriented x 3 Skin: normal color, warm/dry, no rash Lymphatic: no adenopathy Laboratory Results Last 24 Hours Test 08/26/16 15:01 08/26/16 16:34 08/26/16 20:10 08/27/16 07:41 Vitamin B12 Level 554 pg/mL Bedside Glucose 164 mg/dl 167 mg/dl 131 mg/dl Test 08/27/16 08:05 08/27/16 11:28 Sodium Level 138 mmol/L Potassium Level 4.7 mmol/L Chloride Level 106 mmol/L Carbon Dioxide Level 22 mmol/L Anion Gap 10.0 mmol/L Blood Urea Nitrogen 38 mg/dl Creatinine 1.90 mg/dl Est Creatinine Clear Calc Drug Dose 36.5 ml/min Estimated GFR () 39.4 Estimated GFR (Non- 34.0 BUN/Creatinine Ratio 20.2 Random Glucose 137 mg/dl Calcium Level 9.3 mg/dl Bedside Glucose 149 mg/dl Assessment and Plan 76-year-old white male admitted on August 25 because of acute on chronic renal failure , stable and improving Acute kidney injury on CKD stage III: baseline is 1.6 Cr initially elevated at 3.0, now 2.1, will continue fluids - Peripheral neuropathy: hands and feet, most likely from long standing DM will check B 12 level start Neurontin 100mg BID and can titrate upwards aggressively since symptoms are severe give vitamin B6 - Uncontrolled diabetic with A1c 7.9: Continue current care - Insomnia: reports he has not slept in 5 days, due to neuropathy, stable and better Continue Neurontin , cont Benadryl and benzo last night, slept for 30 minutes - Obstructive sleep apnea on the best CPAP machine at home, we will request the RT to set up - Accelerated hypertension, start hydrolyzing by mouth 25 mg 3 times a day Discontinue Ervin catheter, [facility] placement, follow-up renal function Continued [facility] stay due to: multiple IV medications needed Discharge planning: rehab hospital
[2016-08-27] MEDS: ASPIRIN 81 MG ECTAB PO SCH (20:01)
[2016-08-27 20:45] VITALS: BP 167/85; PULSE 82
[2016-08-27] MEDS: ZOLPIDEM TARTRATE 5 MG TAB PO PRN (22:07)
[2016-08-27 23:10] VITALS: BP 183/93; PULSE 92; PULSE 97; TEMP 36.7; O2SAT 92
[2016-08-28 00:32] VITALS: O2SAT 98
[2016-08-28] MEDS: ACETAMINOPHEN 325 MG TAB PO PRN (01:24)
[2016-08-28 01:34] VITALS: BP 162/86
[2016-08-28] MEDS: SODIUM CHLORIDE 0.45% 1000ML 1,000 ML IV SCH (04:51)
[2016-08-28] MEDS: HEPARIN SOD 5000 UNIT/0.5 ML CARP SQ SCH ×3 (05:47→21:48)
[2016-08-28 07:35] VITALS: BP 182/108; PULSE 96; TEMP 36.8; O2SAT 94
[2016-08-28] MEDS: FENOFIBRATE 48 MG TAB PO SCH (07:39)
[2016-08-28] MEDS: METOPROLOL SUCC 25MG EXT REL TAB PO SCH (07:39)
[2016-08-28] MEDS: GABAPENTIN 100 MG CAP PO SCH ×2 (07:40→21:44)
[2016-08-28] MEDS: PYRIDOXINE HCL 50 MG TAB PO SCH (07:40)
[2016-08-28] MEDS: FINASTERIDE 5 MG TAB PO SCH (07:40)
[2016-08-28] MEDS: MULTIVITAMIN TAB PO SCH (07:41)
[2016-08-28] MEDS: DULOXETINE (CYMBALTA) 30 MG CAP PO SCH (07:41)
[2016-08-28] MEDS: INSULIN ASPART 100 UNITS/ML 3 ML PEN SC SCH ×4 (08:43→21:00)
[2016-08-28] MEDS: INSULIN GLARGINE SOLOSTAR 100 UNITS/ML 3 ML PEN SC SCH ×2 (08:44→21:47)
[2016-08-28 09:25] LABS: BLOOD UREA NITROGEN 33 mg/dl (7-18); BUN/CREATININE RATIO 19.2 (10-20); CALCIUM 9.1 mg/dl (8.5-10.1); CARBON DIOXIDE 21 mmol/L (21-32); CHLORIDE 104 mmol/L (98-107); GLUCOSE 208 mg/dl (70-99); SODIUM 136 mmol/L (136-145)
[2016-08-28 09:31] VITALS: BP 164/87; PULSE 88; O2SAT 96
[2016-08-28] MEDS ORDERED: HydrALAZINE HCL 20 MG/ML VIAL IV. PRN (12:45)
[2016-08-28 13:03] VITALS: BP 154/89; PULSE 91
[2016-08-28 14:44] VITALS: BP 175/103; PULSE 94; TEMP 36.3; O2SAT 96
--- NOTE | 2016-08-28 16:56 | Progress Note ---
Subjective Date of Service: Aug 28, 2016. Subjective Pt evaluation today including: conversation w/ patient, physical exam, chart review, lab review, review of studies, review of inpatient medication list Sitting up in bed, report generalized weakness, report bilateral lower leg pain and not able to walk Problem List Medical Problems: (1) Acute renal failure Status: Acute (2) Frequent falls Status: Acute (3) Weakness Status: Acute Review of Systems Constitutional: No chills, No fatigue, No fever, No problem reported, No sweats , No weakness, No weight loss Eyes: No diplopia, No discharge, No eye pain, No redness, No worsening of vision ENT: No dental problems, No hearing loss, No nasal symptoms, No sore throat, No tinnitus, No trouble swallowing, No unusual epistaxis Respiratory: No cough, No dyspnea at rest, No dyspnea on exertion, No hemoptysis, No shortness of breath, No sputum, No wheezing Cardiac: No PND, No chest pain, No claudication, No edema, No orthopnea, No palpitations Abdomen: No constipation, No diarrhea, No nausea, No pain, No vomiting Musculoskeletal: + joint pain, No calf pain, No muscle pain, No swelling Male : No dysuria, No hematuria, No incontinence, No nocturia more than once/ night, No slowing stream, No urinary frequency Neurologic: No balance problems, No memory loss, No numbness/tingling, No paralysis, No vertigo, No weakness Psychiatric: No anhedonism, No anxiety, No depression symptoms, No insomnia, No substance abuse Heme: No abnormal bleeding/bruising, No clotting problems, No night sweats, No swollen lymph nodes Endo: + fatigue, No excessive thirst, No excessive urination Skin: No bleeding, No color change, No itch, No new/changing skin lesions, No rash Objective Vital Signs Date Time Temp Pulse Resp B/P Pulse Ox O2 Delivery O2 Flow Rate FiO2 08/28/16 14:44 36.3 94 20 175/103 96 08/28/16 13:03 91 154/89 08/28/16 09:31 88 96 08/28/16 08:00 Room Air 08/28/16 07:35 36.8 96 20 182/108 94 08/28/16 01:34 162/86 08/28/16 00:32 98 Room Air 08/27/16 23:10 36.7 97 16 183/93 92 Room Air 92 08/27/16 20:45 82 167/85 08/27/16 20:00 Room Air Physical Exam General Appearance: WD/WN, no apparent distress Eyes: normal inspection, PERRL, EOMI, sclerae normal ENT: normal ENT inspection, hearing grossly normal, pharynx normal Neck: supple, no adenopathy, thyroid normal, no JVD, no carotid bruits, trachea midline Respiratory/Chest: chest non-tender, lungs clear, normal breath sounds, no respiratory distress, no accessory muscle use Cardiovascular: regular rate, rhythm, no edema, no gallop, no JVD, no murmur Abdomen: normal bowel sounds, non tender, soft, no organomegaly, no pulsatile mass Extremities: normal range of motion, non-tender, normal inspection, no pedal edema, no calf tenderness, normal capillary refill, pelvis stable 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, no motor/sensory deficits, alert, normal mood/affect, oriented x 3 Skin: normal color, warm/dry, no rash Lymphatic: no adenopathy Laboratory Results Last 24 Hours Test 08/27/16 20:27 08/28/16 06:26 08/28/16 07:31 08/28/16 08:41 Bedside Glucose 129 mg/dl 100 mg/dl Magnesium Level 2.4 mg/dl Folate 23.27 ng/mL Sodium Level 136 mmol/L Potassium Level mmol/L Chloride Level 104 mmol/L Carbon Dioxide Level 21 mmol/L Anion Gap 11.0 mmol/L Blood Urea Nitrogen 33 mg/dl Creatinine 1.70 mg/dl Est Creatinine Clear Calc Drug Dose 40.8 ml/min Estimated GFR () 45.0 Estimated GFR (Non- 38.9 BUN/Creatinine Ratio 19.2 Random Glucose 208 mg/dl Calcium Level 9.1 mg/dl Test 08/28/16 09:35 08/28/16 11:21 Potassium Level 4.8 mmol/L Bedside Glucose 118 mg/dl Assessment and Plan 76-year-old white male admitted on August 25 because of acute on chronic renal failure , stable and improving Acute kidney injury on CKD stage III: baseline is 1.6, today is 1.7 is approaching to baseline Cr initially elevated at 3.0, now 2.1, will discontinue fluids - Peripheral neuropathy: hands and feet, most likely from long standing DM checked Ervin acid, TSH, B 12 level, were all normal Started Neurontin 100mg BID and can titrate upwards aggressively since symptoms are severe give vitamin B6 - Uncontrolled diabetic with A1c 7.9: Continue current care - Insomnia: reports he has not slept in 5 days, due to neuropathy, stable and better Continue Neurontin , cont Benadryl and benzo - Obstructive sleep apnea on the best CPAP machine at home,requested the RT to set up - Accelerated hypertension, still high, increase hydralazine to 50 3 times a day Discontinue Ervin catheter, PT [facility] placement, follow-up renal function Medically closed to ready to discharge Continued [facility] stay due to: multiple IV medications needed Discharge planning: rehab hospital
[2016-08-28] MEDS: ASPIRIN 81 MG ECTAB PO SCH (21:44)
[2016-08-29] VITALS (12 sets, daily range): BP systolic 101–196; BP diastolic 63–114; PULSE 88–105; TEMP 36.5–37.1; O2SAT 92–96
[2016-08-29] MEDS: HEPARIN SOD 5000 UNIT/0.5 ML CARP SQ SCH ×3 (06:22→21:22)
[2016-08-29 08:26] LABS: BUN/CREATININE RATIO 21.4 (10-20); CALCIUM 9.2 mg/dl (8.5-10.1); CREATININE 1.8 mg/dl (0.60-1.40); POTASSIUM 4.2 mmol/L (3.5-5.1)
[2016-08-29] MEDS: INSULIN ASPART 100 UNITS/ML 3 ML PEN SC SCH ×4 (08:28→21:21)
[2016-08-29] MEDS: INSULIN GLARGINE SOLOSTAR 100 UNITS/ML 3 ML PEN SC SCH ×2 (08:33→21:22)
[2016-08-29] MEDS: DULOXETINE (CYMBALTA) 30 MG CAP PO SCH (08:40)
[2016-08-29] MEDS: MULTIVITAMIN TAB PO SCH (08:42)
[2016-08-29] MEDS: GABAPENTIN 100 MG CAP PO SCH ×2 (08:43→20:43)
[2016-08-29] MEDS: FINASTERIDE 5 MG TAB PO SCH (08:44)
[2016-08-29] MEDS: METOPROLOL SUCC 25MG EXT REL TAB PO SCH (08:47)
[2016-08-29] MEDS: FENOFIBRATE 48 MG TAB PO SCH (08:48)
[2016-08-29] MEDS: PYRIDOXINE HCL 50 MG TAB PO SCH (08:49)
[2016-08-29] MEDS ORDERED: MCTP EXT (10:14)
[2016-08-29] MEDS ORDERED: NRN100 PO (10:14)
[2016-08-29] MEDS ORDERED: APR50 PO (10:14)
--- NOTE | 2016-08-29 10:18 | Discharge Instructions ---
Discharge Instructions Admission Reason for Admission: ARF Discharge Discharge Diagnosis / Problem: acute on chronic renal failure Discharge Goals Goal(s): Decrease discomfort, Improve function, Increase independence, Improve disease control, Improve nutritional status, Learn about illness, Diagnostic testing, Therapeutic intervention, Prevent Disease Progression, Specific goals Activity Recommendations Activity Level: Up Ad Kary Therapies: Physical Therapy Lifting Limitations: none Exercise/Sports Limitations: none . Additional Information Patient informed of condition: Yes Advance Directives: No DNR: Yes Level of Care: Acute Rehab Communicable Disease: No Prognosis: Other (guarded) Ervin Catheter: No Instructions / Follow-Up Instructions / Follow-Up you have acute on chronic renal failure stable and improving you need to follow up with your Ticketing Agent in 1-2 weeks you have Peripheral neuropathy, is on Neurontin 100mg tid and can titrate upwards by your pcp Uncontrolled diabetic with A1c 7.9 you have Accelerated hypertension i changed our medication, new med hydralazine to 50mg 3 times a day, lisinopril is hold - you need to follow up with your primary care physician in 1 week, - take medication as instructed, never overdose or any misuse, or take with alcohol, because misuse of medicine may cause organ damage or , call your primary care physician if have questions of medicaitons. - call your primary care physician OR go to local emergency room if has any fever/chill, chest pain, shortness of breathing, nausea/vomiting/abdominal pain , facial droop/slurry speech/local weakness, or if has any questions. - fall precaution - diet as instructed - you need to follow up with your subspecialists - you should understand that it is important to follow up the above instruction , and "not following the above instruction" may cause delayed or missed care of your medical conditions which may cause permanent organ damage and even . Current Hospital Diet Patient's current hospital diet: Diabetes Type 2 Diet, Renal Diet Discharge Diet Recommended Diet: Diabetes Type 2 Diet Procedures Procedures Performed: no Pending Studies Studies pending at discharge: no Physician Orders On Transfer POLST Discussion: without POLST completion Laboratory Results Hemoglobin A1c Test 08/25/16 13:04 Range/Units Estimated Average Glucose 180 mg/dl Hemoglobin A1c 7.9 H 4.5-5.6 % Medical Emergencies . Who to Call and When: Medical Emergencies: If at any time you feel your situation is an emergency, please call 911 immediately. . Non-Emergent Contact Non-Emergency issues call your: Primary Care Provider, Ticketing Agent Call Non-Emergent contact if: you have a fever . . "Provider Documentation" section prepared by Gil Keyes. Core Measure Problem Core Measures: None
--- NOTE | 2016-08-29 10:29 | Discharge Summary ---
Discharge Summary Admission Date: Aug 25, 2016 at 14:27 Discharge Date: Aug 29, 2016 Discharge Disposition: Acute care facility Principal Diagnosis: acute on chronic renal failure Problems/Secondary Diagnoses: Peripheral neuropathy, Uncontrolled diabetic with A1c 7.9 Accelerated hypertension Procedures: no Consultations: renal Medication Reconciliation New Medications: Gabapentin (Gabapentin) 100 Mg Cap 100 MG PO TID for 30 Days, #90 CAP Hydralazine HCl (Hydralazine HCl) 50 Mg Tab 50 MG PO TID for 30 Days, #90 TAB Miconazole Nitrate (Desenex Shake Powder) 43 Appln/43 Gm Powd 1 APPLN EXT UD PRN for Affected Skin Folds for 7 Days Continued Medications: Aspirin (Aspirin Ec) 81 Mg Tab 81 MG PO HS Atorvastatin (Lipitor) 40 Mg Tab 40 MG PO QAM, TAB B-Complex Vitamins (Vitamin B Complex) 1 Tab Tab 1 TAB PO DAILY Chromium (Chromium) 1,000 Mcg Tab 1 TAB PO QAM Duloxetine HCl (Cymbalta) 30 Mg Cap 1 CAP PO DAILY for 30 Days, #30 CAP 2 Refills Ergocalciferol (Vitamin D) 50,000 Interunit Cap 1 CAP PO MONTHLY Fenofibrate (Tricor) 48 Mg Tab 48 MG PO DAILY, TAB Finasteride (Proscar) 5 Mg Tab 5 MG PO DAILY, TAB Fish Oil ([place]-3) 1 Ea Cap 1 CAP PO DAILY, CAP Garlic (Garlic) 500 Mg Cap 1 CAP PO DAILY Insulin Lispro Protamine & Lis (Humalog Mix 50/50 Kwikpen) 1 Inj Inj 60 UNITS SC QAM Insulin Lispro Protamine & Lis (Humalog Mix 50/50) 1 Inj Inj 75 UNITS SC QPM Metoprolol Succ (Toprol Xl) (Toprol-Xl) 25 Mg Tabcr 25 MG PO DAILY, #30 TAB Multivitamin (Multivitamin) Tab 1 TAB PO DAILY, TAB Solifenacin Succinate (Vesicare) 5 Mg Tab 5 MG PO DAILY, TAB Discontinued Medications: Furosemide (Lasix) 40 Mg Tab 40 MG PO DAILY, TAB Lisinopril (Zestril) 5 Mg Tab 5 MG PO DAILY, TAB Discharge Exam sitting up in chair Review of Systems: Constitutional: No chills, No fatigue, No fever, No problem reported, No sweats, No weakness, No weight loss Eyes: No diplopia, No discharge, No eye pain, No problem reported, No redness, No worsening of vision ENT: No dental problems, No hearing loss, No nasal symptoms, No problem reported, No sore throat, No tinnitus, No trouble swallowing, No unusual epistaxis Respiratory: No cough, No dyspnea at rest, No dyspnea on exertion, No hemoptysis, No problem reported, No shortness of breath, No sputum, No wheezing Cardiovascular: No PND, No chest pain, No claudication, No edema, No orthopnea, No palpitations, No problem reported Abdomen: No GI bleeding, No constipation, No diarrhea, No nausea, No pain, No problem reported, No vomiting Musculoskeletal: + joint pain, + problem reported (dominique lower lge pain , is a little beter), No calf pain, No muscle pain, No swelling Genitourinary - Male: No dysuria, No hematuria, No impotence, No lesions, No penile discharge, No problem reported, No urinary frequency, No urinary hesitancy, No urinary incontinence, No urinary retention, No urinary urgency Neurologic: + numbness/tingling, No balance problems, No memory loss, No paralysis, No problem reported, No vertigo, No weakness Psychiatric: No anhedonism, No anxiety, No depression symptoms, No insomnia , No problem reported, No substance abuse Endocrine: No excessive thirst, No excessive urination, No fatigue, No problem reported Hematologic / Lymphatic: No abnormal bleeding/bruising, No clotting problems , No night sweats, No problem reported, No swollen lymph nodes Integumentary: No bleeding, No color change, No itch, No new/changing skin lesions, No problem reported, No rash Physical Exam: General Appearance: WD/WN, no apparent distress Eyes: normal inspection, PERRL ENT: normal ENT inspection, hearing grossly normal, TMs normal Neck: supple, no adenopathy Respiratory/Chest: chest non-tender, lungs clear, + decreased breath sounds Cardiovascular: regular rate, rhythm, no gallop, no JVD Abdomen / GI: normal bowel sounds, non tender, soft, no organomegaly, no pulsatile mass Extremities: normal inspection, no calf tenderness, normal capillary refill , no pedal edema Neurologic/Psychiatric: 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, no motor/sensory deficits , alert, normal mood/affect, normal reflexes Skin: normal color, warm/dry Hospital Course 76-year-old white male admitted on August 25 because of acute on chronic renal failure , stable and improving Acute kidney injury on CKD stage III: baseline is 1.6, today is 1.8, , is approaching to baseline Cr initially elevated at 3.0 upon admission, renal on the case, I have told patient to follow up with ladle car operator as instructed - Peripheral neuropathy: hands and feet, most likely from long standing DM checked Ervin acid, TSH, B 12 level, were all normal Started Neurontin 100mg BID, increased to 100 tid, and can titrate upwards aggressively since symptoms are severe give vitamin B6 - Uncontrolled diabetic with A1c 7.9: Continue current care, need to follow up with pcp - Insomnia: reports he has not slept in 5 days, due to neuropathy, stable and better Continue Neurontin , cont Benadryl and benzo - Obstructive sleep apnea on the best CPAP machine at home,requested the RT to set up, need to continue - Accelerated hypertension, lisinopril was hold b/c renal failure,started hydralazine 25 tid, increased hydralazine to 50 3 times a day, need to be adjusted by pcp Discontinue Ervin catheter, PT [facility] placement, follow-up renal function Instructions / Follow-Up you have acute on chronic renal failure stable and improving you need to follow up with your Registered Dental Assistant Rda in 1-2 weeks you have Peripheral neuropathy, is on Neurontin 100mg tid and can titrate upwards by your pcp Uncontrolled diabetic with A1c 7.9 you have Accelerated hypertension i changed our medication, new med hydralazine to 50mg 3 times a day, lisinopril is hold - you need to follow up with your primary care physician in 1 week, - take medication as instructed, never overdose or any misuse, or take with alcohol, because misuse of medicine may cause organ damage or , call your primary care physician if have questions of medicaitons. - call your primary care physician OR go to local emergency room if has any fever/chill, chest pain, shortness of breathing, nausea/vomiting/abdominal pain , facial droop/slurry speech/local weakness, or if has any questions. - fall precaution - diet as instructed - you need to follow up with your subspecialists - you should understand that it is important to follow up the above instruction , and "not following the above instruction" may cause delayed or missed care of your medical conditions which may cause permanent organ damage and even . Total Time Spent: Greater than 30 minutes This includes examination of the patient, discharge planning, medication reconciliation, and communication with other providers. Discharge Instructions Please refer to the electronic Patient Visit Report (Discharge Instructions) for additional information. Additional Copies To Dionte Collier M.D.; Corey Craven M.D.
[2016-08-29] MEDS: ASPIRIN 81 MG ECTAB PO SCH (20:41)
[2016-08-30] VITALS: O2SAT 96
[2016-08-30] MEDS: ACETAMINOPHEN 325 MG TAB PO PRN (04:21)
[2016-08-30] MEDS: HEPARIN SOD 5000 UNIT/0.5 ML CARP SQ SCH ×2 (06:00→13:23)
[2016-08-30 07:23] VITALS: BP 146/82; PULSE 88; TEMP 36.5; O2SAT 95
[2016-08-30] MEDS: DULOXETINE (CYMBALTA) 30 MG CAP PO SCH (08:15)
[2016-08-30] MEDS: MULTIVITAMIN TAB PO SCH (08:15)
[2016-08-30] MEDS: PYRIDOXINE HCL 50 MG TAB PO SCH (08:15)
[2016-08-30] MEDS: FENOFIBRATE 48 MG TAB PO SCH (08:16)
[2016-08-30] MEDS: GABAPENTIN 100 MG CAP PO SCH (08:16)
[2016-08-30] MEDS: FINASTERIDE 5 MG TAB PO SCH (08:16)
[2016-08-30] MEDS: METOPROLOL SUCC 25MG EXT REL TAB PO SCH (08:17)
[2016-08-30] MEDS: INSULIN ASPART 100 UNITS/ML 3 ML PEN SC SCH ×2 (08:21→13:22)
[2016-08-30] MEDS: INSULIN GLARGINE SOLOSTAR 100 UNITS/ML 3 ML PEN SC SCH (08:22)
[2016-08-30 08:34] LABS: BUN/CREATININE RATIO 25.7 (10-20); CALCIUM 9.1 mg/dl (8.5-10.1); MAGNESIUM 2.8 mg/dl (1.8-2.4); POTASSIUM 4.2 mmol/L (3.5-5.1)
[2016-08-30 10:23] VITALS: O2SAT 96
== END 2016-08-30 14:20 | DRG 684 ==
LOC: ENRESERVTM → ENRESERVDT → EDBD 12:13 → EDSEX 12:13 → C.EDB 12:14 → C.MS2W 14:27
PROVIDERS: ADMIT Hospitalist; ATTEND Hospitalist
DX: N17.9 Acute kidney failure, unspecified (principal); E11.65 Type 2 diabetes mellitus with hyperglycemia; N18.3 Chronic kidney disease, stage 3 (moderate); E11.40 Type 2 diabetes mellitus with diabetic neuropathy, unspecified; E11.22 Type 2 diabetes mellitus with diabetic chronic kidney disease; N40.0 Benign prostatic hyperplasia without lower urinary tract symptoms; G47.33 Obstructive sleep apnea (adult) (pediatric); G47.00 Insomnia, unspecified; I12.9 Hypertensive chronic kidney disease with stage 1 through stage 4 chronic kidney disease, or unspecified chronic kidney disease; R53.1 Weakness; R29.6 Repeated falls; M79.606 Pain in leg, unspecified; E86.0 Dehydration; T46.6X5A Adverse effect of antihyperlipidemic and antiarteriosclerotic drugs, initial encounter; Z87.891 Personal history of nicotine dependence; Z86.19 Personal history of other infectious and parasitic diseases; Z99.89 Dependence on other enabling machines and devices; Z79.82 Long term (current) use of aspirin; Z79.4 Long term (current) use of insulin; Z79.899 Other long term (current) drug therapy

== ENCOUNTER → 2016-10-31 | Outpatient (CLI) | payer OTHER, BC ==
[~2016-10-31] MED LIST changes: +APR50 PO; +B-COTAB18 PO; +DOCU-94 PO; +ERGO500037 PO; -FRS/40 PO; +FURO40TA3 PO; +GABA1CAP4 PO; +GLC5 PO; +INSDGIPEN SC; +INSU50IN SC; -LISI-729 PO; +MCTP EXT; +NRN100 PO; +NVLGI/PEN SC; +OMEG120013 PO
[2016-10-31 12:45] LABS: HEMATOCRIT 45.1 % (42-52); MEAN CELL VOLUME 97.2 fL (80-100); MEAN CORPUSCULAR HEMOGLOBIN 32.1 pg (25-34); MEAN PLATELET VOLUME 11.8 fL (7.4-10.4); PLATELET COUNT 215 K/uL (130-400); RED BLOOD COUNT 4.64 M/uL (4.7-6.1); WHITE BLOOD COUNT 5.25 K/uL (4.8-10.8)
[2016-10-31 14:04] LABS: ESTIMATED AVERAGE GLUCOSE 203 mg/dl; HA1C FLAG Normal (Normal)
[2016-10-31 19:42] LABS: ALT/SGPT 25 U/L (12-78); AST/SGOT 13 U/L (15-37); BLOOD UREA NITROGEN 43 mg/dl (7-18); BUN/CREATININE RATIO 21.4 (10-20); CARBON DIOXIDE 27 mmol/L (21-32); CHLORIDE 108 mmol/L (98-107); CHOLESTEROL 207 mg/dl (0-200); GLUCOSE 160 mg/dl (70-99); POTASSIUM 4.5 mmol/L (3.5-5.1); SODIUM 143 mmol/L (136-145)
[2016-10-31 19:48] LABS: ALKALINE PHOSPHATASE 52 U/L (45-117); CHOLESTEROL/HDL RATIO 7.1; HDL CHOLESTEROL 29 mg/dl; PHOSPHORUS 2.8 mg/dl (2.5-4.9); TRIGLYCERIDES 458 mg/dl (0-150)
== END | disposition home or self-care (01) ==
LOC: C.LABPBG 11:02
PROVIDERS: ATTEND Internal Medicine Nephrology
DX: N40.1 Benign prostatic hyperplasia with lower urinary tract symptoms (principal); R35.0 Frequency of micturition; N18.3 Chronic kidney disease, stage 3 (moderate); E78.5 Hyperlipidemia, unspecified; M19.90 Unspecified osteoarthritis, unspecified site; E11.9 Type 2 diabetes mellitus without complications; K82.8 Other specified diseases of gallbladder; G47.30 Sleep apnea, unspecified; I10 Essential (primary) hypertension; E55.9 Vitamin D deficiency, unspecified; R80.9 Proteinuria, unspecified; R31.29 Other microscopic hematuria

== ENCOUNTER 2016-11-11 13:32 | Inpatient (IN) | payer OTHER, BC ==
[~2016-11-11] VITALS: Ht 167.6 cm; Wt 94.3 kg
[~2016-11-11 13:32] MED LIST changes: -DOCU-94 PO; -ERGO500037 PO; -FURO40TA3 PO; -GABA1CAP4 PO; -GLC5 PO; -INSDGIPEN SC; -NVLGI/PEN SC; -OMEG120013 PO
[2016-11-11] MEDS ORDERED: SODIUM CHLORIDE 0.9% 250ML 250 ML IV STA (13:44)
[2016-11-11] MEDS ORDERED: SODIUM CHLORIDE 0.9% 1000ML 1,000 ML IV STA (13:44)
--- NOTE | 2016-11-11 14:10 | DIAGNOSTIC IMAGING REPORT ---
CHEST ONE VIEW PORTABLE CLINICAL HISTORY: Altered mental status. COMPARISON STUDY: Chest radiograph August 25, 2016. FINDINGS: Lung volumes are normal. There is no consolidation to suggest pneumonia. There is no evidence of pulmonary edema. Cardiomediastinal silhouette is stable. Mild cardiomegaly is unchanged. There is no evidence of pulmonary edema. IMPRESSION: No acute cardiopulmonary findings. Electronically signed by: Vinicius Stein M.D. 11/11/2016 2:09 PM Dictated Date/Time: 11/11/2016 2:08 PM
[2016-11-11] MEDS ORDERED: ATOR-24 PO (14:19)
[2016-11-11] MEDS ORDERED: FINA5TAB PO (14:19)
[2016-11-11] MEDS ORDERED: INSDGIPEN SC (14:19)
[2016-11-11] MEDS ORDERED: OMEG120013 PO (14:19)
[2016-11-11] MEDS ORDERED: ASPI81TA28 PO (14:19)
[2016-11-11] MEDS ORDERED: CYM/30 PO (14:19)
[2016-11-11] MEDS ORDERED: NVLGI/PEN SC (14:19)
[2016-11-11] MEDS ORDERED: FENO48TA9 PO (14:19)
[2016-11-11] MEDS ORDERED: GLC5 PO (14:19)
[2016-11-11] MEDS ORDERED: CHRO1TAB2 PO (14:19)
[2016-11-11] MEDS ORDERED: GARL500C5 PO (14:19)
[2016-11-11] MEDS ORDERED: MULT-506 PO (14:19)
[2016-11-11] MEDS ORDERED: METO25TA3 PO (14:19)
[2016-11-11] MEDS ORDERED: DOCU-94 PO (14:19)
[2016-11-11] MEDS ORDERED: B-COTAB18 PO (14:23)
[2016-11-11] MEDS ORDERED: SOLI5TAB2 PO (14:23)
[2016-11-11] MEDS ORDERED: ERGO500037 PO (14:23)
[2016-11-11] MEDS ORDERED: GABA1CAP4 PO (14:25)
[2016-11-11] MEDS ORDERED: FURO40TA3 PO (14:31)
[2016-11-11 14:47] LABS: BASO % 0.4 %; BASO ABS # 0.03 K/uL (0-0.2); COMPLETE YES; EOS % 0.6 %; HEMATOCRIT 38.6 % (42-52); IG% 0.3 %; LYMPH % 8.4 %; LYMPH ABS # 0.67 K/uL (1.2-3.4); MEAN CELL VOLUME 95.8 fL (80-100); MEAN CORPUSCULAR HGB CONC 33.4 g/dl (32-36); MEAN PLATELET VOLUME 11.2 fL (7.4-10.4); MONO % 4.5 %; NEUT % 85.8 %; PLATELET COUNT 201 K/uL (130-400); RED BLOOD COUNT 4.03 M/uL (4.7-6.1); WHITE BLOOD COUNT 7.94 K/uL (4.8-10.8)
--- NOTE | 2016-11-11 15:07 | DIAGNOSTIC IMAGING REPORT ---
CT OF THE HEAD WITHOUT CONTRAST CLINICAL HISTORY: Altered mental status. COMPARISON STUDY: Head CT August 25, 2016. CT DOSE: 614.27 mGy.cm TECHNIQUE: Helical axial images of the head were obtained without IV contrast. Automated exposure control was utilized for the study. FINDINGS: No acute intracranial hemorrhage, midline shift or mass effect is present. Ventricular system is stable. Basilar cisterns are patent. There are no extra-axial collections. Clark-white differentiation is maintained. There are no findings to suggest acute dural sinus thrombosis or acute territorial infarct. There are no significant calvarial abnormalities. Visualized portions of the sinuses and mastoid air cells are clear. IMPRESSION: No acute intracranial findings. Electronically signed by: Vinicius Stein M.D. 11/11/2016 3:06 PM Dictated Date/Time: 11/11/2016 3:04 PM
[2016-11-11 15:08] LABS: ALT/SGPT 23 U/L (12-78); AST/SGOT 10 U/L (15-37); BLOOD UREA NITROGEN 81 mg/dl (7-18); CALCIUM 8.4 mg/dl (8.5-10.1); CARBON DIOXIDE 24 mmol/L (21-32); CHLORIDE 109 mmol/L (98-107); GLUCOSE 103 mg/dl (70-99); MAGNESIUM 2.6 mg/dl (1.8-2.4); POTASSIUM 4.8 mmol/L (3.5-5.1); SODIUM 143 mmol/L (136-145)
[2016-11-11 15:13] LABS: ALKALINE PHOSPHATASE 41 U/L (45-117)
[2016-11-11 16:13] LABS: URINE APPEARANCE CLEAR (CLEAR); URINE BILIRUBIN NEG (NEG); URINE COLOR YELLOW; URINE NITRITE NEG (NEG); URINE SPECIFIC GRAVITY 1.011 (1.000-1.030); UROBILINOGEN NEG (NEG); ZZUR CULT IF INDIC CLEAN CATCH NO
[2016-11-11 16:19] LABS: MANUAL MICROSCOPIC REQUIRED? NO; REVIEW REQ? NO
--- NOTE | 2016-11-11 17:20 | EMERGENCY ROOM VISIT NOTE ---
History Report prepared by Jackeline: Gia Hess Under the Supervision of: Dr. Leigh Ann Roberto M.D. First contact with patient: 13:44 Chief Complaint: HYPOGLYCEMIA Stated Complaint: HYPOGLYCEMIA Nursing Triage Summary: pt found by magdalena this am. bsg 47 for bls, given d50 then 133. pt forgetful at this time, doesn't remember if he takes insulin History of Present Illness The patient is a 76 year old male who presents to the Emergency Room with complaints of persistent altered mental status starting MANAGER MONITORING. He is unsure why he was sent here. He does not know when he took insulin. He is unsure what month or year it is. He takes medications at home by himself. He is not on any pain medicines. He denies being in any pain. The nursing notes say that he is a diabetic who takes insulin. 60 units of Humalog in the morning and 75 in the evening. The history is limited due to the patient's altered mental status. Source of History: patient, nursing staff History Limited By: AMS Onset: MANAGER MONITORING Position: other (global) Quality: other (AMS) Timing: other (persistent) Review of Systems Unobtainable due to altered mental status. Past Medical & Surgical Medical Problems: (1) Altered mental status (2) ARF (acute renal failure) (3) Enlarged prostate (4) Hepatitis (5) Type II diabetes mellitus Family History Diabetes mellitus Heart disease Hypertension Social History Smoking Status: Former Smoker Alcohol Use: none Drug Use: none Marital Status: Housing Status: lives alone Occupation Status: retired Current/Historical Medications Scheduled Aspirin (Aspirin Ec), 81 MG PO DAILY Atorvastatin (Lipitor), 40 MG PO DAILY B-Complex Vitamins (Vitamin B Complex), 1 TAB PO DAILY Chromium (Chromium), 1,000 MCG PO DAILY Docusate Sodium (Colace), 100 MG PO DAILY Duloxetine HCl (Cymbalta), 30 MG PO DAILY Ergocalciferol (Vitamin D 07223 Unit), 50,000 UNIT PO MONTHLY Fenofibrate (Tricor), 48 MG PO DAILY Finasteride (Proscar), 5 MG PO DAILY Furosemide (Lasix), 40 MG PO DAILY Gabapentin (Gabapentin), 300 MG PO TID Garlic (Garlic), 500 MG PO DAILY Glipizide (Glipizide), 5 MG PO QAM Insulin Aspart (Novolog Flexpen), 12 UNITS SC TIDM Insulin Glargine (Lantus Solostar), 36 UNITS SC HS Metoprolol Succ (Toprol Xl) (Toprol-Xl), 25 MG PO QAM Multivitamin (Multivitamin), 1 TAB PO DAILY [place]-3 Fatty Acids (Fish Oil), 1,200 MG PO DAILY Scheduled PRN Solifenacin Succinate (Vesicare), 5 MG PO DAILY PRN for URINARY FREQUENCY Allergies Coded Allergies: No Known Allergies (Unverified , 08/25/16) Physical Exam Vital Signs Date Time Temp Pulse Resp B/P Pulse Ox O2 Delivery O2 Flow Rate FiO2 11/11/16 18:21 72 19 150/80 94 Room Air 11/11/16 16:23 141/71 11/11/16 16:02 75 15 11/11/16 15:32 78 18 96 11/11/16 15:18 115/58 11/11/16 14:59 75 11/11/16 14:58 73 17 135/56 93 Room Air 11/11/16 13:36 36.7 81 17 135/68 97 Room Air 11/11/16 13:36 135/68 Physical Exam Vital signs reviewed. General: Elderly, pleasantly confused, in no significant distress. HEENT: No scleral icterus, PERRLA, neck supple. Atraumatic. Cardiovascular: Regular rate and rhythm, no extra sounds. Pulmonary: Clear to auscultation bilaterally, normal work of breathing. Abdomen: Soft, nontender, nondistended, positive bowel sounds. Musculoskeletal: Atraumatic, 2+ pitting edema to the bilateral lower extremities. Neurologic: Patient awake and alert, unable to state month and year, able to follow commands, full strength in all 4 extremities. Cranial nerves 2 through 12 grossly intact. Skin: Warm, dry, no rash Medical Decision & Procedures ER Provider Diagnostic Interpretation: X-ray results as stated below per interpretation by me and the radiologist. Radiology results as stated below per my review and radiologist interpretation: CHEST ONE VIEW PORTABLE CLINICAL HISTORY: Altered mental status. COMPARISON STUDY: Chest radiograph August 25, 2016. FINDINGS: Lung volumes are normal. There is no consolidation to suggest pneumonia. There is no evidence of pulmonary edema. Cardiomediastinal silhouette is stable. Mild cardiomegaly is unchanged. There is no evidence of pulmonary edema. IMPRESSION: No acute cardiopulmonary findings. Electronically signed by: Vinicius Stein M.D. 11/11/2016 2:09 PM Dictated Date/Time: 11/11/2016 2:[address] OF THE HEAD WITHOUT CONTRAST CLINICAL HISTORY: Altered mental status. COMPARISON STUDY: Head CT August 25, 2016. CT DOSE: 614.27 mGy.cm TECHNIQUE: Helical axial images of the head were obtained without IV contrast. Automated exposure control was utilized for the study. FINDINGS: No acute intracranial hemorrhage, midline shift or mass effect is present. Ventricular system is stable. Basilar cisterns are patent. There are no extra-axial collections. Clark-white differentiation is maintained. There are no findings to suggest acute dural sinus thrombosis or acute territorial infarct. There are no significant calvarial abnormalities. Visualized portions of the sinuses and mastoid air cells are clear. IMPRESSION: No acute intracranial findings. Electronically signed by: Vinicius Stein M.D. 11/11/2016 3:06 PM Dictated Date/Time: 11/11/2016 3:04 PM Laboratory Results Test 11/11/16 14:30 11/11/16 14:42 11/11/16 15:40 Immature Granulocyte % (Auto) 0.3 % White Blood Count 7.94 K/uL (4.8-10.8) Red Blood Count 4.03 M/uL (4.7-6.1) Hemoglobin 12.9 g/dL (14.0-18.0) Hematocrit 38.6 % (42-52) Mean Corpuscular Volume 95.8 fL (80-100) Mean Corpuscular Hemoglobin 32.0 pg (25-34) Mean Corpuscular Hemoglobin Concent 33.4 g/dl (32-36) Platelet Count 201 K/uL (130-400) Mean Platelet Volume 11.2 fL (7.4-10.4) Neutrophils (%) (Auto) 85.8 % Lymphocytes (%) (Auto) 8.4 % Monocytes (%) (Auto) 4.5 % Eosinophils (%) (Auto) 0.6 % Basophils (%) (Auto) 0.4 % Neutrophils # (Auto) 6.81 K/uL (1.4-6.5) Lymphocytes # (Auto) 0.67 K/uL (1.2-3.4) Monocytes # (Auto) 0.36 K/uL (0.11-0.59) Eosinophils # (Auto) 0.05 K/uL (0-0.5) Basophils # (Auto) 0.03 K/uL (0-0.2) Immature Granulocyte # (Auto) 0.02 K/uL (0.00-0.02) Prothrombin Time 10.7 SECONDS (9.0-12.0) Prothromb Time International Ratio 1.0 (0.9-1.1) Activated Partial Thromboplast Time 25.6 SECONDS (21.0-31.0) Partial Thromboplastin Ratio 1.0 Magnesium Level 2.6 mg/dl (1.8-2.4) Total Bilirubin 0.4 mg/dl (0.2-1) Direct Bilirubin < 0.1 mg/dl (0-0.2) Aspartate Amino Transf (AST/SGOT) 10 U/L (15-37) Alanine Aminotransferase (ALT/SGPT) 23 U/L (12-78) Alkaline Phosphatase 41 U/L (45-117) Total Creatine Kinase 132 U/L (39-308) Creatine Kinase MB 3.9 ng/ml (0.5-3.6) Creatine Kinase MB Ratio 3.0 (0-3.0) Total Protein 6.5 gm/dl (6.4-8.2) Albumin 3.5 gm/dl (3.4-5.0) Bedside Troponin I 0.000 ng/ml (0-0.045) Urine Color YELLOW Urine Appearance CLEAR (CLEAR) Urine pH 6.0 (4.5-7.5) Urine Specific [place] 1.011 (1.000-1.030) Urine Protein NEG (NEG) Urine Glucose (UA) NEG (NEG) Urine Ketones NEG (NEG) Urine Occult Blood NEG (NEG) Urine Nitrite NEG (NEG) Urine Bilirubin NEG (NEG) Urine Urobilinogen NEG (NEG) Urine Leukocyte Esterase NEG (NEG) Laboratory results per my review. Medications Administered Medications (Trade) Dose Ordered Sig/Ramana Route Start Time Stop Time Status Last Admin Dose Admin Sodium Chloride 250 ml @ 999 mls/hr Q16M STAT IV 11/11/16 13:44 11/11/16 13:59 DC 11/11/16 14:53 999 MLS/HR Sodium Chloride (Nss 1000ml) 1,000 ml @ 125 mls/hr Q8H STAT IV 11/11/16 13:44 11/11/16 21:43 DC 11/11/16 14:53 125 MLS/HR ECG Indication: altered mental status Rate (beats per minute): 78 Rhythm: normal sinus Findings: RBBB, no ectopy ED Course 1355: Past medical records reviewed. The patient was evaluated in room B4B. A complete history and physical examination was performed. 1344: NSS 1000 ml @ 125 mls/hr IV, NSS 250 ml @ 999 mls/hr IV. 1625: I reviewed the patient's case with Dr. Hernandez [facility] [place] - hospitalist. She will evaluate the patient for further management. 1648: Upon reevaluation, the patient is resting comfortably. I discussed laboratory and radiographic results with him. He verbalized agreement of the treatment plan. The patient will be evaluated for further management and care. Medical Decision Differential diagnosis: Etiologies such as metabolic, infection, hypoglycemia, electrolyte abnormalities , cardiac sources, intracerebral event, toxicologic, neurologic, as well as others were entertained. This patient was evaluated and appeared to be in no significant distress. Patient does appear to be somewhat confused. Blood sugar was evaluated by EMS and found to be low. He was given IV dextrose with significant improvement. IV access was obtained and laboratory work was drawn. Patient was hydrated with normal saline solution. CT scan of the head was performed and is negative for acute intracranial pathology. Laboratory work reveals significant acute on chronic renal insufficiency, creatinine of 3.7. The case was discussed with the hospitalist service. He will be evaluated for admission and further management. Consults Time Called: 1618 Consulting Physician: Dr. Hernandez [facility] [place] - hospitalist Returned Call: [phone] I reviewed the patient's case with her. She will evaluate the patient for further management. Impression Primary Impression: Acute on chronic renal failure Additional Impression: Hypoglycemia Scribe Attestation The scribe's documentation has been prepared under my direction and personally reviewed by me in its entirety. I confirm that the note above accurately reflects all work, treatment, procedures, and medical decision making performed by me. Departure Information Dispostion Being Evaluated By Hospitalist Referrals Corey Craven M.D. (PCP) Patient Instructions My [facility] Problem Qualifiers
[2016-11-11] MEDS ORDERED: GLUCAGON FOR INJ 1 MG VIAL SQ PRN (18:45)
[2016-11-11] MEDS ORDERED: ONDANSETRON INJ 2 MG/ML 2 ML VIAL IV PRN (18:45)
[2016-11-11] MEDS ORDERED: DEXTROSE 50% 50 ML SYR IV PRN (18:45)
[2016-11-11] MEDS ORDERED: MAGNESIUM HYDROXIDE SUSP 30 ML UDC PO PRN (18:45)
[2016-11-11] MEDS ORDERED: ENOXAPARIN 40 MG/0.4 ML SYR SC SCH (18:45)
[2016-11-11] MEDS ORDERED: ACETAMINOPHEN 325 MG TAB PO PRN (18:45)
[2016-11-11] MEDS ORDERED: GLUCOSE 40% GEL 15 GM TUBE PO PRN (18:45)
[2016-11-11] MEDS ORDERED: GLUCOSE 10 TABS/TUBE PO PRN (18:45)
--- NOTE | 2016-11-11 19:08 | History and Physical ---
History & Physical Date & Time of Service: Nov 11, 2016 at 18:38 Chief Complaint: Hypoglycemia Primary Care Physician: Corey Craven M.D. History of Present Illness Source: patient, family 76 y/o M who was brought here via EMS after magdalena noted he was with AMS. Magdalena states that he has been mildly confused since her arrival on Saturday. Yesterday , pt slept from 1p-6p when she woke him up to ask if he needed anything while she was out visiting others in the area. He asked her to bring back a pizza. She returned home around 10:30 with this. Pt ate 4 slices of pizza and then went to bed. She was woken up around 4:30a to pt calling out for her. She found pt on the floor. He could not give her any details as to what happened. She sat with him for a bit and he was able to talk with her otherwise. He fell asleep again. She woke him up at 11a to ask what he wanted from the grocery before she went back to [place] and was able to arouse pt, but he couldn't speak clearly or follow basic commands. Nigalen called HH and they advised her to call 911. Pt's BS when EMS arrived was 47. 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 Pt at this time states he is tired. He cannot tell me the events of yesterday or when he took his last insulin dosing. He is able to tell me that he has DM and that he takes 50/50 insulin from [place], 60 AM and 75 PM. He is struggling to tell me his other medications and the dx he takes them for. Pt states he frequently does not feel the need to urinate and then finds himself sitting in urine. This does not happen with stool. Magdalena lives in [place] and came here on Saturday to check in on pt after reports that "things were going downhill". She states that pt was hospitalized here a few months ago, although she is uncertain of the details. She states he was d/c'd to [facility] and from there to [facility]. He has been back in his own home with HH for about 3 weeks. Magdalena states that she speaks with pt quite regularly on the phone and noted that he was more and more forgetful. After staying with him this weekend she is even more concerned about his memory and ability to take care of himself, but pt insisted he was fine. Niece states that over the course of the weekend she noted that pt's ambulation is shaky. He has a walker, but is not using it much and is just a bit unsteady. She states there are lots of items around the house in areas that could lead him to fall and mouths the word "hoarder" to me. Her biggest concern is pt was having a lot of difficulty in managing his medications. She set up pill boxes for pt for the next three weeks until she could return, but was uncertain what to do with the medications he takes multiple times per day and his insulin. She note that he does take his insulin, but cannot confirm that he is taking the dose he should be. She also states that pt has been incontinent of urine quite frequently. She states he has had several falls. Pt denies fever, SOB, chest pain, abd pain, n/v/c/d, LE pain or swelling. ROS as noted above, otherwise neg. Another concern is the pt's POA is his sister who is currently residing in a SNF in [place], possibly called [facility], however she is living there because she has Alzheimer's. Niece states there is a friend named Sandra in the area who helps somewhat, but no one else. Past Medical/Surgical History Medical Problems: (1) Enlarged prostate Status: Chronic (2) Hepatitis Status: Chronic (3) Type II diabetes mellitus Status: Chronic HTN CKD Stage III Peripheral neuropathy Family History Family history was reviewed; no changes noted. Social History Smoking Status: Former Smoker (quit in the 70s) Alcohol Use: none Drug Use: none Marital Status: Occupational Status: retired Multi-Drug Resistant Organisms History of MDRO: No Allergies Coded Allergies: No Known Allergies (Unverified , 08/25/16) Home Medications Scheduled Aspirin (Aspirin Ec), 81 MG PO DAILY Atorvastatin (Lipitor), 40 MG PO DAILY B-Complex Vitamins (Vitamin B Complex), 1 TAB PO DAILY Chromium (Chromium), 1,000 MCG PO DAILY Docusate Sodium (Colace), 100 MG PO DAILY Duloxetine HCl (Cymbalta), 30 MG PO DAILY Ergocalciferol (Vitamin D 97737 Unit), 50,000 UNIT PO MONTHLY Fenofibrate (Tricor), 48 MG PO DAILY Finasteride (Proscar), 5 MG PO DAILY Furosemide (Lasix), 40 MG PO DAILY Gabapentin (Gabapentin), 300 MG PO TID Garlic (Garlic), 500 MG PO DAILY Glipizide (Glipizide), 5 MG PO QAM Insulin Aspart (Novolog Flexpen), 12 UNITS SC TIDM Insulin Glargine (Lantus Solostar), 36 UNITS SC HS Metoprolol Succ (Toprol Xl) (Toprol-Xl), 25 MG PO QAM Multivitamin (Multivitamin), 1 TAB PO DAILY [place]-3 Fatty Acids (Fish Oil), 1,200 MG PO DAILY Scheduled PRN Solifenacin Succinate (Vesicare), 5 MG PO DAILY PRN for URINARY FREQUENCY Physical Exam Vital Signs Date Time Temp Pulse Resp B/P Pulse Ox O2 Delivery O2 Flow Rate FiO2 11/11/16 16:23 141/71 11/11/16 16:02 75 15 11/11/16 15:32 78 18 96 11/11/16 15:18 115/58 11/11/16 14:59 75 11/11/16 14:58 73 17 135/56 93 Room Air 11/11/16 13:36 36.7 81 17 135/68 97 Room Air 11/11/16 13:36 135/68 General Appearance: WD/WN, no apparent distress Head: normocephalic, atraumatic Respiratory/Chest: normal breath sounds, no respiratory distress Cardiovascular: regular rate, rhythm, normal peripheral pulses Abdomen/GI: non tender, soft Extremities/Musculoskelatal: no calf tenderness, + pedal edema (trace) Neurologic/Psych: alert (to person, knows he is in the hospital in [place], states "I am not sure" to year or month) Skin: normal color, warm/dry Diagnostics Laboratory Results Results Past 24 Hours Test 11/11/16 13:36 11/11/16 14:30 11/11/16 14:42 11/11/16 15:40 Range/Units Bedside Glucose 111 70-99 mg/dl White Blood Count 7.94 4.8-10.8 K/uL Red Blood Count 4.03 4.7-6.1 M/uL Hemoglobin 12.9 14.0-18.0 g/dL Hematocrit 38.6 42-52 % Mean Corpuscular Volume 95.8 80-100 fL Mean Corpuscular Hemoglobin 32.0 25-34 pg Mean Corpuscular Hemoglobin Concent 33.4 32-36 g/dl Platelet Count 201 130-400 K/uL Mean Platelet Volume 11.2 7.4-10.4 fL Neutrophils (%) (Auto) 85.8 % Lymphocytes (%) (Auto) 8.4 % Monocytes (%) (Auto) 4.5 % Eosinophils (%) (Auto) 0.6 % Basophils (%) (Auto) 0.4 % Neutrophils # (Auto) 6.81 1.4-6.5 K/uL Lymphocytes # (Auto) 0.67 1.2-3.4 K/uL Monocytes # (Auto) 0.36 0.11-0.59 K/uL Eosinophils # (Auto) 0.05 0-0.5 K/uL Basophils # (Auto) 0.03 0-0.2 K/uL RDW Standard Deviation 47.1 36.4-46.3 fL RDW Coefficient of Variation 13.6 11.5-14.5 % Immature Granulocyte % (Auto) 0.3 % Immature Granulocyte # (Auto) 0.02 0.00-0.02 K/uL Sodium Level 143 136-145 mmol/L Potassium Level 4.8 3.5-5.1 mmol/L Chloride Level 109 98-107 mmol/L Carbon Dioxide Level 24 21-32 mmol/L Anion Gap 10.0 3-11 mmol/L Blood Urea Nitrogen 81 7-18 mg/dl Creatinine 3.70 0.60-1.40 mg/dl Est Creatinine Clear Calc Drug Dose 19.0 ml/min Estimated GFR () 17.6 Estimated GFR (Non- 15.2 BUN/Creatinine Ratio 22.0 10-20 Random Glucose 103 70-99 mg/dl Calcium Level 8.4 8.5-10.1 mg/dl Magnesium Level 2.6 1.8-2.4 mg/dl Total Bilirubin 0.4 0.2-1 mg/dl Direct Bilirubin < 0.1 0-0.2 mg/dl Aspartate Amino Transf (AST/SGOT) 10 15-37 U/L Alanine Aminotransferase (ALT/SGPT) 23 12-78 U/L Alkaline Phosphatase 41 45-117 U/L Total Creatine Kinase 132 39-308 U/L Creatine Kinase MB 3.9 0.5-3.6 ng/ml Creatine Kinase MB Ratio 3.0 0-3.0 Total Protein 6.5 6.4-8.2 gm/dl Albumin 3.5 3.4-5.0 gm/dl Bedside Troponin I 0.000 0-0.045 ng/ml Urine Color YELLOW Urine Appearance CLEAR CLEAR Urine pH 6.0 4.5-7.5 Urine Specific [place] 1.011 1.000-1.030 Urine Protein NEG NEG Urine Glucose (UA) NEG NEG Urine Ketones NEG NEG Urine Occult Blood NEG NEG Urine Nitrite NEG NEG Urine Bilirubin NEG NEG Urine Urobilinogen NEG NEG Urine Leukocyte Esterase NEG NEG Diagnostic Radiology CT head neg for acute CXR normal Impression Assessment and Plan 76 y/o M who was admitted on 11/11 with AMS. AMS: metabolic encephalopathy likely related to hypoglycemia Uncertain how much insulin pt has taken in the last 24hrs Improved s/p D5 from EMS after being found with BS of 47 Holding home DM meds and will monitor on SSI with adjustments to home medications if needed Pt is unable to tell me if his weight has changed recently, so hypoglycemia may have been overmedication either due to memory or weight loss A1c 10/31 was 8.7, will not repeat UA neg, CXR neg for PNA CT head is WNL, hold on MRI for now given improvements s/p D5 Memory issues: B12 on admission was not optimal at 554, will repeat again and would recommend supplementation sublingual if still in this range as his PPI and age may not be allowing for optimal gut absorption of the tablet form, which could cause issues with memory Also of note, pt was started on gabapentin that admission for his PN and this has been titrated over that time and could be causing memory issues as well Carotid US pending Acute on chronic renal failure: likely dehydration from poor PO Baseline is 2.0 Monitor on gentle IVF given lasix needs DM: As above, SSI for now until needs determined and BS noted to be stable PN: Gabapentin as above, may need lower dose given memory issues BPH: recently has been incontinent, monitor while here Falls: PT/OT pending Other: DNR/DNI per conversation with pt and niece in the ED. This was per pt request and niece states that she spoke about this with him recently with the same answer. Heparin for DVT proph DM diet POA issues as noted in HPI, paperwork will need completed to have POA changed once pt is able to determine who he would entrust this to Level of Care Telemetry Advanced Directives Existing Power of Corporate Development Analyst: Yes Resuscitation Status DO NOT RESUSCITATE VTE Prophylaxis VTE Risk Assessment Done? Y/N: Yes Risk Level: Low
[2016-11-11 20:15] VITALS: BP 132/71; PULSE 78; TEMP 36.5; O2SAT 98; BMI 33.8
--- NOTE | 2016-11-11 20:54 | DIAGNOSTIC IMAGING REPORT ---
CAROTID ARTERY ULTRASOUND CLINICAL HISTORY: Altered mental status. COMPARISON STUDY: None. TECHNIQUE: Real-time, grayscale, and color Doppler sonography of the carotid and vertebral arteries was performed. Images were viewed in the transverse and longitudinal planes. FINDINGS: There is moderate atherosclerotic plaque. Velocity measurements are listed below. COMMON CAROTID PEAK SYSTOLIC VELOCITY (CM/S): RIGHT 85 LEFT 102 ICA PEAK SYSTOLIC VELOCITY (CM/S): RIGHT 85 LEFT 136 Systolic ratios between the internal to common carotid arteries are normal. Antegrade flow is seen in the vertebral arteries. The external carotid arteries are patent. Blood pressure in the right arm measured 135/73. Blood pressure in the left arm measured 148/63. IMPRESSION: Moderate atherosclerotic plaque without convincing evidence for hemodynamically significant stenosis. Mildly elevated peak systolic velocity within the proximal left internal carotid artery with normal systolic ratio. The findings likely reflect less than 50% stenosis. Electronically signed by: Vinicius Stein M.D. 11/11/2016 8:53 PM Dictated Date/Time: 11/11/2016 8:51 PM
[2016-11-11] MEDS ORDERED: INSULIN ASPART 100 UNITS/ML 3 ML PEN SC SCH (21:00)
[2016-11-11 21:06] LABS: PROTHROMBIN TIME (PATIENT) 10.7 SECONDS (9.0-12.0)
[2016-11-11] MEDS: GABAPENTIN 300 MG CAP PO SCH (21:39)
[2016-11-11] MEDS: SODIUM CHLORIDE 0.9% 1000ML 1,000 ML IV SCH (21:40)
[2016-11-12] VITALS (8 sets, daily range): BP systolic 95–148; BP diastolic 53–83; PULSE 70–82; TEMP 36.3–37; O2SAT 94–99; Ht 167.6 cm; Wt 94.3 kg
[2016-11-12] MEDS: HEPARIN SOD 5000 UNIT/0.5 ML CARP SQ SCH ×4 (00:01→21:53)
[2016-11-12 06:36] LABS: BUN/CREATININE RATIO 23.2 (10-20); CREATININE 2.6 mg/dl (0.60-1.40); POTASSIUM 4.7 mmol/L (3.5-5.1)
[2016-11-12 06:38] LABS: CALCIUM 9.4 mg/dl (8.5-10.1)
[2016-11-12] MEDS: GABAPENTIN 300 MG CAP PO SCH ×3 (07:56→20:50)
[2016-11-12] MEDS: VITAMIN B COMPLEX TAB PO SCH (07:57)
[2016-11-12] MEDS: DULOXETINE (CYMBALTA) 30 MG CAP PO SCH (07:57)
[2016-11-12] MEDS: OMEGA-3 (PURIFIED FISH OIL) 1 GM CAP PO SCH (07:57)
[2016-11-12] MEDS: FENOFIBRATE 48 MG TAB PO SCH (07:57)
[2016-11-12] MEDS: ASPIRIN 81 MG ECTAB PO SCH (07:58)
[2016-11-12] MEDS: MULTIVITAMIN TAB PO SCH (07:58)
[2016-11-12] MEDS: FINASTERIDE 5 MG TAB PO SCH (07:58)
[2016-11-12] MEDS: ATORVASTATIN 40 MG TAB PO SCH (07:58)
[2016-11-12] MEDS: DOCUSATE SODIUM 100 MG CAP PO SCH (07:59)
[2016-11-12] MEDS: VESICARE - ORDER AWAITING ACTION SCH ×3 (08:00→17:22)
[2016-11-12 08:39] LABS: HEMATOCRIT 38.9 % (42-52); MEAN CORPUSCULAR HEMOGLOBIN 31.9 pg (25-34); MEAN CORPUSCULAR HGB CONC 33.2 g/dl (32-36); MEAN PLATELET VOLUME 11.9 fL (7.4-10.4); PLATELET COUNT 198 K/uL (130-400); RED BLOOD COUNT 4.05 M/uL (4.7-6.1); WHITE BLOOD COUNT 6.37 K/uL (4.8-10.8)
[2016-11-12] MEDS ORDERED: CHROMIUM 1000 MCG PO SCH (09:00)
[2016-11-12] MEDS: FUROSEMIDE 40 MG TAB PO SCH (09:00)
[2016-11-12] MEDS ORDERED: NON-FORMULARY MEDICATION (Garlic 500 MG) PO SCH (09:00)
--- NOTE | 2016-11-12 10:16 | Hospitalist Progress Note ---
Hospitalist Progress Note Date of Service November 12, 2016. (Briana Carreon ., QUINTONC) Subjective Pt evaluation today including: conversation w/ patient, physical exam, chart review, lab review, review of studies, review of inpatient medication list Pain: None PO Intake: Tolerating PO diet Voiding: incontinence (urine and stool) Patient reports feeling well. He states that he is somewhat fatigued but otherwise denies any other complaints. He states he is eating and sleeping well. Per nursing, the patient is incontinent of both urine and stool. He had episodes of hypoglycemia with BSGs in the 60s but was reportedly asymptomatic. The patient was treated with meal tray and juice. BSG improved to 120s. Patient was more confused overnight, but seems to be doing better this morning. The patient denies fevers, chills, sweats, chest pain, palpitations, claudication, cough, wheezing, shortness of breath, nausea, vomiting, abdominal pain, dysuria, hematuria, urinary retention, paralysis, weakness, numbness and tingling. Additional Comments: See HPI for pertinent positives and negatives. All other systems reviewed and negative. (Briana Carreon ., PA-C) Objective Vital Signs Date Time Temp Pulse Resp B/P Pulse Ox O2 Delivery O2 Flow Rate FiO2 11/12/16 07:48 36.5 72 18 95/53 98 11/12/16 04:00 Room Air 11/12/16 03:53 37.0 77 18 104/65 95 Room Air 11/12/16 00:18 36.3 77 18 127/69 94 Room Air 11/12/16 00:00 Room Air 11/12/16 00:00 Room Air 11/11/16 20:15 36.5 78 18 132/71 98 Room Air 11/11/16 19:30 71 21 135/66 96 11/11/16 18:21 72 19 150/80 94 Room Air 11/11/16 16:23 141/71 11/11/16 16:02 75 15 11/11/16 15:32 78 18 96 11/11/16 15:18 115/58 11/11/16 14:59 75 11/11/16 14:58 73 17 135/56 93 Room Air 11/11/16 13:36 36.7 81 17 135/68 97 Room Air 11/11/16 13:36 135/68 (Briana Carreon ., PA-C) Physical Exam General Appearance: WD/WN, no apparent distress, + obese Eyes: normal inspection, PERRL, EOMI ENT: normal ENT inspection, hearing grossly normal, pharynx normal Neck: supple, no JVD, trachea midline Respiratory/Chest: lungs clear, normal breath sounds, no respiratory distress Cardiovascular: regular rate, rhythm, no gallop, no murmur Abdomen: normal bowel sounds, non tender, soft Extremities: non-tender, normal inspection, + swelling (1+ pitting edema bilaterally) Neurologic/Psychiatric: alert, normal mood/affect, oriented x 3 (oriented but very forgetful) Skin: normal color, warm/dry, no rash (Briana Carreon ., PA-C) Laboratory Results Last 24 Hours Test 11/11/16 13:36 11/11/16 14:30 11/11/16 14:42 11/11/16 15:40 Bedside Glucose 111 mg/dl White Blood Count 7.94 K/uL Red Blood Count 4.03 M/uL Hemoglobin 12.9 g/dL Hematocrit 38.6 % Mean Corpuscular Volume 95.8 fL Mean Corpuscular Hemoglobin 32.0 pg Mean Corpuscular Hemoglobin Concent 33.4 g/dl Platelet Count 201 K/uL Mean Platelet Volume 11.2 fL Neutrophils (%) (Auto) 85.8 % Lymphocytes (%) (Auto) 8.4 % Monocytes (%) (Auto) 4.5 % Eosinophils (%) (Auto) 0.6 % Basophils (%) (Auto) 0.4 % Neutrophils # (Auto) 6.81 K/uL Lymphocytes # (Auto) 0.67 K/uL Monocytes # (Auto) 0.36 K/uL Eosinophils # (Auto) 0.05 K/uL Basophils # (Auto) 0.03 K/uL RDW Standard Deviation 47.1 fL RDW Coefficient of Variation 13.6 % Immature Granulocyte % (Auto) 0.3 % Immature Granulocyte # (Auto) 0.02 K/uL Prothrombin Time 10.7 SECONDS Prothromb Time International Ratio 1.0 Activated Partial Thromboplast Time 25.6 SECONDS Partial Thromboplastin Ratio 1.0 Sodium Level 143 mmol/L Potassium Level 4.8 mmol/L Chloride Level 109 mmol/L Carbon Dioxide Level 24 mmol/L Anion Gap 10.0 mmol/L Blood Urea Nitrogen 81 mg/dl Creatinine 3.70 mg/dl Est Creatinine Clear Calc Drug Dose 19.0 ml/min Estimated GFR () 17.6 Estimated GFR (Non- 15.2 BUN/Creatinine Ratio 22.0 Random Glucose 103 mg/dl Calcium Level 8.4 mg/dl Magnesium Level 2.6 mg/dl Total Bilirubin 0.4 mg/dl Direct Bilirubin < 0.1 mg/dl Aspartate Amino Transf (AST/SGOT) 10 U/L Alanine Aminotransferase (ALT/SGPT) 23 U/L Alkaline Phosphatase 41 U/L Total Creatine Kinase 132 U/L Creatine Kinase MB 3.9 ng/ml Creatine Kinase MB Ratio 3.0 Total Protein 6.5 gm/dl Albumin 3.5 gm/dl Bedside Troponin I 0.000 ng/ml Urine Color YELLOW Urine Appearance CLEAR Urine pH 6.0 Urine Specific [place] 1.011 Urine Protein NEG Urine Glucose (UA) NEG Urine Ketones NEG Urine Occult Blood NEG Urine Nitrite NEG Urine Bilirubin NEG Urine Urobilinogen NEG Urine Leukocyte Esterase NEG Test 11/11/16 20:26 11/11/16 20:46 11/11/16 21:07 11/11/16 21:54 Bedside Glucose 65 mg/dl 66 mg/dl 68 mg/dl 121 mg/dl Test 11/12/16 01:57 11/12/16 05:10 11/12/16 06:07 Bedside Glucose 147 mg/dl 117 mg/dl White Blood Count 6.37 K/uL Red Blood Count 4.05 M/uL Hemoglobin 12.9 g/dL Hematocrit 38.9 % Mean Corpuscular Volume 96.0 fL Mean Corpuscular Hemoglobin 31.9 pg Mean Corpuscular Hemoglobin Concent 33.2 g/dl RDW Standard Deviation 48.5 fL RDW Coefficient of Variation 13.8 % Platelet Count 198 K/uL Mean Platelet Volume 11.9 fL Sodium Level 146 mmol/L Potassium Level 4.7 mmol/L Chloride Level 114 mmol/L Carbon Dioxide Level 22 mmol/L Anion Gap 10.0 mmol/L Blood Urea Nitrogen 60 mg/dl Creatinine 2.60 mg/dl Est Creatinine Clear Calc Drug Dose 26.8 ml/min Estimated GFR () 26.9 Estimated GFR (Non- 23.3 BUN/Creatinine Ratio 23.2 Random Glucose 115 mg/dl Calcium Level 9.4 mg/dl Vitamin B12 Level 524 pg/mL Folate 18.45 ng/mL (Briana Carreon, CONRAD) Diagnostic Results Reviewed the following studies and agree with interpretation as follows: Patient Name: JENNIFER GUY Unit Number: [id number] Dictated: 11/11/162050 Transcribed: 11/11/162050 JA Printed Date/Time: [~ rep prt dt]/[~ rep prt tm] [~ rep ct labl] - [~ rep ct ivnm] [facility] [place] [address] Dictated: 11/11/162050 Transcribed: 11/11/162050 JA Printed Date/Time: [~ rep prt dt]/[~ rep prt tm] [~ rep ct labl] - [~ rep ct ivnm] Patient: JENNIFER GUY Address1: [address] [place] [address] Rec: [id number] Address2: Acct ID: [id number] [facility] Zip: [place] [address] Date: 1940 Sex: M Room/Bed: [facility] Ref Phy: Corey Craven M.D. SC: C.2T Att Phy: Ciarra Hernandez DO Report #: [id number] Jessica Phy: Corey Craven M.D. Test: CD Admit Phy: Ciarra Hernandez DO Operations Tech: ADAM Interpreting Phy: Vinicius Stein MD Diagnosis: ALTERED MENTAL STATUS Ordering Phy: Ciarra Hernandez DO Service Date: 11/11/16 Admit Date: 11/12/1703/30/17 MNE: [id number] CONF: DICTATED BY: Vinicius Stein MD]] CC: Corey Craven M.D. Stevens, Jessica A., DO Endcc: [~ rep ct add3]] CAROTID ARTERY ULTRASOUND CLINICAL HISTORY: Altered mental status. COMPARISON STUDY: None. TECHNIQUE: Real-time, grayscale, and color Doppler sonography of the carotid and vertebral arteries was performed. Images were viewed in the transverse and longitudinal planes. FINDINGS: There is moderate atherosclerotic plaque. Velocity measurements are listed below. COMMON CAROTID PEAK SYSTOLIC VELOCITY (CM/S): RIGHT 85 LEFT 102 ICA PEAK SYSTOLIC VELOCITY (CM/S): RIGHT 85 LEFT 136 Systolic ratios between the internal to common carotid arteries are normal. Antegrade flow is seen in the vertebral arteries. The external carotid arteries are patent. Blood pressure in the right arm measured 135/73. Blood pressure in the left arm measured 148/63. IMPRESSION: Moderate atherosclerotic plaque without convincing evidence for hemodynamically significant stenosis. Mildly elevated peak systolic velocity within the proximal left internal carotid artery with normal systolic ratio. The findings likely reflect less than 50% stenosis. Electronically signed by: Vinicius Stein M.D. 11/11/2016 8:53 PM Dictated Date/Time: 11/11/2016 8:51 PM The status of this report is Signed. Draft = Not yet reviewed or approved by Radiologist. Signed = Reviewed and approved by Radiologist. <AttendingPhy>Ciarra Hernandez DO</AttendingPhy> <FamilyPhy>Corey Craven M.D.</FamilyPhy> <PrimaryPhy>Corey Craven M.D.</PrimaryPhy> <UnitNumber> [id number]</UnitNumber> <VisitNumber>[id number]</VisitNumber> <PatientName> JUANCHOSHANTELJENNIFER</PatientName> <DateOfBirth>1940</DateOfBirth> <Location> C.2T</Location> <ServiceDate>11/11/16</ServiceDate> <MNE>ESINDI</MNE> < OrderingPhy>Ciarra Hernandez DO</OrderingPhy> <OrderingPhyMNE>f rep ord dr gonsalez </OrderingPhyMNE> <DictatingPhyMNE>f rep dict dr gonsalez</DictatingPhyMNE> < CCListMNE>f rep ct wallace</CCListMNE> <AdmittingPhyMNE>f pt admit dr gonsalez</ AdmittingPhyMNE> <AttendingPhyMNE>f pt attend dr gonsalez</AttendingPhyMNE> <ConsultingPhyMNE>f pt consult dr gonsalez</ConsultingPhyMNE> <FamilyPhyMNE>f pt fam dr gonsalez</FamilyPhyMNE> <OtherPhyMNE>f pt other dr gonsalez</OtherPhyMNE> < PrimaryPhyMNE>f pt prim care dr gonsalez</PrimaryPhyMNE> <ReferringPhyMNE>f pt referring dr gonsalez</ReferringPhyMNE> (Briana Carreon ., CONRAD) Assessment and Plan 76 y/o male with a history of DM II, CKD stage III, HTN, HLD, peripheral neuropathy and BPH who presented to the ED on 11/11 with AMS and hypoglycemia. BSG 47 upon arrival of EMS. Pt improve after receiving D5. Metabolic encephalopathy--likely secondary to hypoglycemia. Improved. -Admit to telemetry. No acute events overnight, pt remained in SR with HR in 70s-80s. Transfer to med/surg 11/12 -Episodes of hypoglycemia with BSGs in 60s overnight despite not receiving insulin. Pt treated with food and juice, BSG improved to 120s. Pt asymptomatic during episodes -ISS had been d/c'd. Will restart for mealtime coverage as needed -Head CT no acute findings -UA negative for UTI -CXR no acute disease -Carotid ultrasound shows moderate atherosclerotic plaque but no hemodynamically significant stenosis. Mildly elevated peak systolic velocity w/ in proximal L internal carotid, less than 50% stenosis. -Vitamin B12 level pending -Gabapentin may be contributing to confusion. Per outpt records, PCP recommended that the pt discontinue the gabapentin, but pt stated that he was going to continue to take anyway. May be able to compromise and lower the dose BHUMI on CKD stage III--baseline creatinine around 2.0. Improving. -Creatinine 3.7 on arrival -Gentle hydration with NSS at 50 cc/hr due to h/o edema -Creatinine 2.6 on 11/12 Diabetes mellitus type 2--last HgbA1c checked 10/31 was 8.7 -Hold glipizide and home insulin regimen -ISS was d/c'd, still with hypoglycemia despite not receiving any insulin inpatient -Restart insulin sliding scale for mealtime coverage -Check BSGs q ac and qhs -Continue to monitor HTN--stable -Continue Toprol 25 mg PO qd HLD -Continue atorvastatin 40 mg PO qd and fenofibrate 48 mg PO qd BPH -Continue finasteride 5 mg PO qd DVT prophylaxis -Heparin 5000 units SC q8h Dispo -Pt came from home with HH services -Physical therapy recommending acute rehab again, not safe to return home. Pt would prefer rehab closer to his home in [place]. -Current POA is sister who resides in dementia unit at a SNF. This will need to be changed. Code Status -Level V, DO NOT RESUSCITATE (Briana Carreon ., PA-C) I agree with PA assessment and plan and have seen and examined pt myself Pt transiently confused Hypoglycemia episode this AM Will likely need placement VSS Labs reviewed Appreciate pharm recs on insulin management Cont PT/OT (Norm Shah D.O.)
[2016-11-12] MEDS: METOPROLOL SUCC 25MG EXT REL TAB PO SCH (13:54)
[2016-11-12] MEDS: SODIUM CHLORIDE 0.9% 1000ML 1,000 ML IV SCH (13:57)
[2016-11-12] MEDS: INSULIN ASPART 100 UNITS/ML 3 ML PEN SC SCH ×2 (17:21→21:52)
[2016-11-13] VITALS: O2SAT 98
[2016-11-13] MEDS: HEPARIN SOD 5000 UNIT/0.5 ML CARP SQ SCH ×3 (06:00→20:42)
[2016-11-13] MEDS: INSULIN ASPART 100 UNITS/ML 3 ML PEN SC SCH ×4 (06:30→20:41)
[2016-11-13 07:21] LABS: HEMATOCRIT 38.3 % (42-52); MEAN CELL VOLUME 96.2 fL (80-100); MEAN CORPUSCULAR HEMOGLOBIN 31.4 pg (25-34); MEAN CORPUSCULAR HGB CONC 32.6 g/dl (32-36); MEAN PLATELET VOLUME 11.4 fL (7.4-10.4); PLATELET COUNT 192 K/uL (130-400); RED BLOOD COUNT 3.98 M/uL (4.7-6.1); WHITE BLOOD COUNT 5.52 K/uL (4.8-10.8)
[2016-11-13 07:33] VITALS: BP 138/79; PULSE 68; TEMP 36.5; O2SAT 96
[2016-11-13 07:57] LABS: BUN/CREATININE RATIO 20.9 (10-20); CALCIUM 8.9 mg/dl (8.5-10.1); CREATININE 2.2 mg/dl (0.60-1.40); POTASSIUM 4.6 mmol/L (3.5-5.1)
[2016-11-13 08:00] VITALS: O2SAT 98
[2016-11-13] MEDS: FUROSEMIDE 40 MG TAB PO SCH (08:00)
[2016-11-13] MEDS: VESICARE - ORDER AWAITING ACTION SCH ×4 (08:00→23:47)
[2016-11-13] MEDS: GABAPENTIN 300 MG CAP PO SCH ×3 (08:22→20:35)
[2016-11-13] MEDS: ASPIRIN 81 MG ECTAB PO SCH (08:22)
[2016-11-13] MEDS: ATORVASTATIN 40 MG TAB PO SCH (08:22)
[2016-11-13] MEDS: FENOFIBRATE 48 MG TAB PO SCH (08:23)
[2016-11-13] MEDS: VITAMIN B COMPLEX TAB PO SCH (08:23)
[2016-11-13] MEDS: METOPROLOL SUCC 25MG EXT REL TAB PO SCH (08:23)
[2016-11-13] MEDS: DULOXETINE (CYMBALTA) 30 MG CAP PO SCH (08:23)
[2016-11-13] MEDS: OMEGA-3 (PURIFIED FISH OIL) 1 GM CAP PO SCH (08:24)
[2016-11-13] MEDS: MULTIVITAMIN TAB PO SCH (08:24)
[2016-11-13] MEDS: FINASTERIDE 5 MG TAB PO SCH (08:24)
[2016-11-13] MEDS: DOCUSATE SODIUM 100 MG CAP PO SCH (08:25)
[2016-11-13] MEDS: SODIUM CHLORIDE 0.9% 1000ML 1,000 ML IV SCH (10:31)
[2016-11-13] MEDS ORDERED: NURSING VERBAL MED ORDER ONE (10:45)
--- NOTE | 2016-11-13 12:09 | Hospitalist Progress Note ---
Hospitalist Progress Note Date of Service November 13, 2016. (Briana Carreon ., PA-C) Subjective Pt evaluation today including: conversation w/ patient, physical exam, chart review, lab review, review of inpatient medication list Pain: None PO Intake: Tolerating PO diet Voiding: incontinence Patient presents feeling well. He is eating and sleeping well. Per nursing, the patient is still incontinent of urine. The patient denies fevers, chills, sweats, chest pain, palpitations, claudication, cough, wheezing, shortness of breath, nausea, vomiting, abdominal pain, dysuria, hematuria, urinary retention , paralysis, weakness, numbness and tingling. Additional Comments: See HPI for pertinent positives and negatives. All other systems reviewed and negative. (Briana Carreon ., PA-C) Objective Vital Signs Date Time Temp Pulse Resp B/P Pulse Ox O2 Delivery O2 Flow Rate FiO2 11/13/16 08:00 98 Room Air 11/13/16 07:33 36.5 68 16 138/79 96 Room Air 11/13/16 00:00 98 Room Air 11/12/16 23:22 36.9 82 16 139/74 96 Room Air 11/12/16 20:00 98 Room Air 11/12/16 15:48 36.5 75 20 133/71 98 11/12/16 15:00 Room Air 11/12/16 14:22 36.4 75 18 148/83 99 Room Air 11/12/16 12:01 36.4 70 20 123/70 99 Room Air (Briana Carreon ., PA-C) Physical Exam Notes: General appearance: +obese. Well-developed, well-nourished, no apparent distress Head: Normocephalic, atraumatic Eyes: Normal inspection, PERRL, EOMI ENT: Normal ENT inspection, hearing grossly normal, pharynx normal Neck: Supple, no JVD, trachea midline Respiratory/Chest: +slight crackles in bases. Normal breath sounds, no respiratory distress Cardiovascular: Regular rate & rhythm, no gallop, no murmur Abdomen/GI: Normal bowel sounds, non-tender, soft Extremities/Musculoskeletal: +1+ pitting edema bilaterally. Normal inspection , no calf tenderness Neurological/Psych: +disoriented to time and situation. Does not recall the events of yesterday. Alert, normal mood/affect Skin: Normal color, warm/dry, no rash (Briana Carreon ., PA-C) Laboratory Results Last 24 Hours Test 11/12/16 16:17 11/12/16 20:37 11/13/16 06:40 11/13/16 07:51 Bedside Glucose 172 mg/dl 197 mg/dl 137 mg/dl White Blood Count 5.52 K/uL Red Blood Count 3.98 M/uL Hemoglobin 12.5 g/dL Hematocrit 38.3 % Mean Corpuscular Volume 96.2 fL Mean Corpuscular Hemoglobin 31.4 pg Mean Corpuscular Hemoglobin Concent 32.6 g/dl RDW Standard Deviation 47.6 fL RDW Coefficient of Variation 13.5 % Platelet Count 192 K/uL Mean Platelet Volume 11.4 fL Sodium Level 144 mmol/L Potassium Level 4.6 mmol/L Chloride Level 112 mmol/L Carbon Dioxide Level 25 mmol/L Anion Gap 7.0 mmol/L Blood Urea Nitrogen 46 mg/dl Creatinine 2.20 mg/dl Est Creatinine Clear Calc Drug Dose 31.7 ml/min Estimated GFR () 33.0 Estimated GFR (Non- 28.5 BUN/Creatinine Ratio 20.9 Random Glucose 132 mg/dl Calcium Level 8.9 mg/dl Test 11/13/16 11:32 Bedside Glucose 201 mg/dl (Briana Carreon ., PA-C) Assessment and Plan 76 y/o male with a history of DM II, CKD stage III, HTN, HLD, peripheral neuropathy and BPH who presented to the ED on 11/11 with AMS and hypoglycemia. BSG 47 upon arrival of EMS. Pt improve after receiving D5. Metabolic encephalopathy--likely secondary to hypoglycemia. Stable. -Admit to telemetry. No acute events overnight, pt remained in SR with HR in 70s-80s. Transfer to med/surg 11/12 -No episodes of hypoglycemia overnight -Continue ISS -Head CT no acute findings -UA negative for UTI -CXR no acute disease -Carotid ultrasound shows moderate atherosclerotic plaque but no hemodynamically significant stenosis. Mildly elevated peak systolic velocity w/ in proximal L internal carotid, less than 50% stenosis. -Vitamin B12 level pending -Gabapentin may be contributing to confusion. Per outpt records, PCP recommended that the pt discontinue the gabapentin, but pt stated that he was going to continue to take anyway. May be able to compromise and lower the dose BHUMI on CKD stage III--baseline creatinine around 2.0. Continues to improve. -Creatinine 3.7 on arrival -D/C IVF -Creatinine 2.2 on / Diabetes mellitus type 2--last HgbA1c checked 10/31 was 8.7 -Hold glipizide and home insulin regimen -Insulin sliding scale -Check BSGs q ac and qhs -Continue to monitor HTN--stable -Continue Toprol 25 mg PO qd HLD -Continue atorvastatin 40 mg PO qd and fenofibrate 48 mg PO qd BPH -Continue finasteride 5 mg PO qd DVT prophylaxis -Heparin 5000 units SC q8h Dispo -Pt came from home with services -Physical therapy recommending acute rehab again, not safe to return home. Pt would prefer rehab closer to his home in [place]. -Case management following. [facility], however [facility] do not have any male beds available. Placed referrals to [facility] and [facility], awaiting determination. -Current POA is sister who resides in dementia unit at a SNF. This will need to be changed. Code Status -Level V, DO NOT RESUSCITATE (Briana Carreon ., PA-C) I agree with PA assessment and plan and have seen and examined the pt myself Pt resting comfortably in bed Alert and oriented x 2 Doesnt know why he is here Labs and vitals reviewed Awaiting rehab at this time (Norm Shah, D.O.)
[2016-11-13 15:08] VITALS: BP 147/73; PULSE 72
[2016-11-13 15:32] VITALS: BP 147/73; PULSE 72; TEMP 36.5; O2SAT 95
[2016-11-14 00:09] VITALS: BP 120/68; PULSE 63; TEMP 36.6; O2SAT 95
[2016-11-14] MEDS: HEPARIN SOD 5000 UNIT/0.5 ML CARP SQ SCH ×2 (05:27→14:27)
[2016-11-14] MEDS: INSULIN ASPART 100 UNITS/ML 3 ML PEN SC SCH ×2 (06:30→11:59)
[2016-11-14 06:59] VITALS: BP 138/79; PULSE 65; TEMP 36.5; O2SAT 97
[2016-11-14 07:35] LABS: HEMATOCRIT 39.3 % (42-52); MEAN CELL VOLUME 95.9 fL (80-100); MEAN CORPUSCULAR HEMOGLOBIN 31.7 pg (25-34); MEAN CORPUSCULAR HGB CONC 33.1 g/dl (32-36); MEAN PLATELET VOLUME 11.3 fL (7.4-10.4); PLATELET COUNT 191 K/uL (130-400); WHITE BLOOD COUNT 5.61 K/uL (4.8-10.8)
[2016-11-14 08:00] VITALS: O2SAT 98
[2016-11-14] MEDS: VESICARE - ORDER AWAITING ACTION SCH (08:00)
[2016-11-14 08:08] LABS: BUN/CREATININE RATIO 19.6 (10-20); CALCIUM 8.7 mg/dl (8.5-10.1); CREATININE 1.9 mg/dl (0.60-1.40); POTASSIUM 4.6 mmol/L (3.5-5.1)
[2016-11-14] MEDS: DULOXETINE (CYMBALTA) 30 MG CAP PO SCH (08:47)
[2016-11-14] MEDS: DOCUSATE SODIUM 100 MG CAP PO SCH (08:47)
[2016-11-14] MEDS: ASPIRIN 81 MG ECTAB PO SCH (08:47)
[2016-11-14] MEDS: ATORVASTATIN 40 MG TAB PO SCH (08:47)
[2016-11-14] MEDS: FENOFIBRATE 48 MG TAB PO SCH (08:48)
[2016-11-14] MEDS: OMEGA-3 (PURIFIED FISH OIL) 1 GM CAP PO SCH (08:48)
[2016-11-14] MEDS: MULTIVITAMIN TAB PO SCH (08:48)
[2016-11-14] MEDS: FINASTERIDE 5 MG TAB PO SCH (08:48)
[2016-11-14] MEDS: METOPROLOL SUCC 25MG EXT REL TAB PO SCH (08:48)
[2016-11-14] MEDS: VITAMIN B COMPLEX TAB PO SCH (08:48)
[2016-11-14] MEDS: GABAPENTIN 300 MG CAP PO SCH ×2 (08:49→14:23)
[2016-11-14] MEDS: FUROSEMIDE 40 MG TAB PO SCH (09:53)
--- NOTE | 2016-11-14 12:59 | Discharge Instructions ---
Discharge Instructions Date of Service November 14, 2016. Admission Reason for Admission: Altered Mental Status Discharge Discharge Diagnosis / Problem: Metabolic encephalopathy, hypoglycemia, acute kidney injury Discharge Goals Goal(s): Decrease discomfort, Improve function, Diagnostic testing, Therapeutic intervention Activity Recommendations Activity Level: Assistance Required Therapies: Physical Therapy, Occupational Therapy . Additional Information Patient informed of condition: Yes Advance Directives: Yes DNR: Yes Level of Care: Acute Rehab Communicable Disease: No Prognosis: Stable Instructions / Follow-Up Instructions / Follow-Up Patient was admitted to the hospital after presenting with altered mental status and hypoglycemia. The patient's blood sugar upon arrival of EMS was found to be 47. The patient's symptoms had improved after receiving D5. The patient's home insulin regimen and glipizide were held and he was placed on a sliding scale only. The patient's mental status did improve although he seems to have some baseline dementia and confusion as well as short-term memory loss. The patient also presented with acute kidney injury on top of his chronic kidney disease, which improved after receiving IV fluids. The patient was evaluated by physical therapy who recommended an acute inpatient rehabilitation stay, as it would not be safe for the patient to return home where he is alone. The patient's mental status has remained stable and his kidney function has returned to baseline. He is now medically stable to go to rehabilitation. Medications: *The patient's home Lantus and NovoLog insulin regimens have been held as he has required very little insulin while inpatient per sliding scale *Glipizide will be resumed as prescribed *Continue all other home medications as prescribed Follow up: *Patient should follow up with medical provider within one week regarding blood sugars as well as to recheck renal function and ensure it is stable. The patient may require an insulin sliding scale again at some point. Please seek medical attention if you experience fevers, chills, sweats, chest pain, shortness of breath, nausea, vomiting, lightheadedness, loss of consciousness, numbness, tingling, altered mental status or worsening confusion. Current Hospital Diet Patient's current hospital diet: Diabetes Type 2 Diet Discharge Diet Recommended Diet: Diabetes Type 2 Diet Pending Studies Studies pending at discharge: no Physician Orders On Transfer Special Precautions: Fall precautions Vital Signs: Routine Additional Orders: If patient becomes noncompliant, he may require evaluation for capacity Laboratory Results Hemoglobin A1c Test 10/31/16 11:11 Range/Units Estimated Average Glucose 203 mg/dl Hemoglobin A1c 8.7 H 4.5-5.6 % Lipid Panel Test 10/31/16 11:11 Range/Units Triglycerides Level 458 H 0-150 mg/dl Cholesterol Level 207 H 0-200 mg/dl HDL Cholesterol 29 mg/dl Cholesterol/HDL Ratio 7.1 LDL Cholesterol, Calculated mg/dl Medical Emergencies . Who to Call and When: Medical Emergencies: If at any time you feel your situation is an emergency, please call 911 immediately. . Non-Emergent Contact Non-Emergency issues call your: Primary Care Provider Call Non-Emergent contact if: you have a fever, you have any medication questions . Past History Medical & Surgical History: (1) Metabolic encephalopathy (2) Acute on chronic renal failure (3) Hypoglycemia . "Provider Documentation" section prepared by Briana Carreon. . Core Measure Problem Core Measures: None
[2016-11-14 13:55] VITALS: BP 138/79; PULSE 65; TEMP 36.5; O2SAT 98
--- NOTE | 2016-11-14 14:38 | Discharge Summary ---
Discharge Summary Date of Service November 14, 2016. (Briana Carreon ., CONRAD) Discharge Summary Admission Date: Nov 11, 2016 at 18:36 Discharge Date: November 14, 2016 Discharge Disposition: Rehab ([facility]) Principal Diagnosis: Metabolic encephalopathy, hypoglycemia, BUHMI Procedures: Head CT: IMPRESSION: No acute intracranial findings. CXR: IMPRESSION: No acute cardiopulmonary findings. Carotid artery ultrasound: IMPRESSION: Moderate atherosclerotic plaque without convincing evidence for hemodynamically significant stenosis. Mildly elevated peak systolic velocity within the proximal left internal carotid artery with normal systolic ratio. The findings likely reflect less than 50% stenosis. (Briana Carreon, QUINTONC) Medication Reconciliation Continued Medications: Aspirin (Aspirin Ec) 81 Mg Tab 81 MG PO DAILY Atorvastatin (Lipitor) 40 Mg Tab 40 MG PO DAILY, TAB B-Complex Vitamins (Vitamin B Complex) 1 Tab Tab 1 TAB PO DAILY Chromium (Chromium) 1,000 Mcg Tab 1000 MCG PO DAILY Docusate Sodium (Colace) 100 Mg Cap 100 MG PO DAILY for 30 Days, #30 CAP Duloxetine HCl (Cymbalta) 30 Mg Cap 30 MG PO DAILY for 30 Days, #30 CAP 2 Refills Ergocalciferol (Vitamin D 32151 Unit) 50,000 Unit Cap 58277 UNIT PO MONTHLY, CAP Fenofibrate (Tricor) 48 Mg Tab 48 MG PO DAILY, TAB Finasteride (Proscar) 5 Mg Tab 5 MG PO DAILY, TAB Furosemide (Lasix) 40 Mg Tab 40 MG PO DAILY, #90 Gabapentin (Gabapentin) 300 Mg Cap 300 MG PO TID, #90 Garlic (Garlic) 500 Mg Cap 500 MG PO DAILY Glipizide (Glipizide) 5 Mg Tab 5 MG PO QAM Metoprolol Succ (Toprol Xl) (Toprol-Xl) 25 Mg Tabcr 25 MG PO QAM, #30 TAB Multivitamin (Multivitamin) Tab 1 TAB PO DAILY, TAB Ambler-3 Fatty Acids (Fish Oil) 1,200 Mg Cap 1200 MG PO DAILY Solifenacin Succinate (Vesicare) 5 Mg Tab 5 MG PO DAILY PRN for URINARY FREQUENCY, TAB Discontinued Medications: Insulin Aspart (Novolog Flexpen) 100 Units/Ml Inj 12 UNITS SC TIDM Insulin Glargine (Lantus Solostar) 100 Unit/Ml Inj 36 UNITS SC HS, PEN Discharge Exam Patient reports feeling well. He denies any lightheadedness, palpitations, tremors or shortness of breath. The patient denies fevers, chills, sweats, chest pain, palpitations, claudication, cough, wheezing, shortness of breath, nausea, vomiting, abdominal pain, dysuria, hematuria, urinary retention, paralysis, weakness, numbness and tingling. Review of Systems: Constitutional: No chills, No fever, No sweats Eyes: No diplopia, No eye pain, No worsening of vision ENT: No hearing loss, No sore throat, No trouble swallowing Respiratory: No cough, No shortness of breath, No wheezing Cardiovascular: No chest pain, No claudication, No palpitations Abdomen: No nausea, No pain, No vomiting Musculoskeletal: No calf pain, No joint pain, No muscle pain Genitourinary - Male: No dysuria, No hematuria, No urinary retention Neurologic: No numbness/tingling, No paralysis, No weakness Integumentary: No color change, No itch, No rash Physical Exam: General Appearance: WD/WN, no apparent distress, + obese Eyes: normal inspection, PERRL, EOMI ENT: normal ENT inspection, hearing grossly normal, pharynx normal Neck: supple, no JVD, trachea midline Respiratory/Chest: lungs clear, normal breath sounds, no respiratory distress Cardiovascular: regular rate, rhythm, no gallop, no murmur Abdomen / GI: normal bowel sounds, non tender, soft Extremities: normal inspection, no calf tenderness, + swelling (1+ pitting edema) Neurologic/Psychiatric: alert, normal mood/affect, oriented x 3 (oriented 3 today, however, the patient does not recall the events of yesterday) Skin: normal color, warm/dry, no rash (Briana Carreon ., PA-C) Hospital Course 76 y/o male with a history of DM II, CKD stage III, HTN, HLD, peripheral neuropathy and BPH who presented to the ED on 11/11 with AMS and hypoglycemia. BSG 47 upon arrival of EMS. Pt improve after receiving D5. Metabolic encephalopathy--likely secondary to hypoglycemia. Stable. -Admit to telemetry. No acute events overnight, pt remained in SR with HR in 70s-80s. Transfer to med/surg 11/12 -No episodes of hypoglycemia overnight -Continue ISS. Will discontinue insulin sliding scale on discharge as patient has now been requiring very much insulin. -Head CT no acute findings -UA negative for UTI -CXR no acute disease -Carotid ultrasound shows moderate atherosclerotic plaque but no hemodynamically significant stenosis. Mildly elevated peak systolic velocity w/ in proximal L internal carotid, less than 50% stenosis. -Vitamin B12 level WNL -Gabapentin may be contributing to confusion. Per outpt records, PCP recommended that the pt discontinue the gabapentin, but pt stated that he was going to continue to take anyway. May be able to compromise and lower the dose -Patient with short term memory loss and appears to have some baseline dementia BHUMI on CKD stage III--baseline creatinine around 2.0. Continues to improve. -Creatinine 3.7 on arrival -D/C IVF -Creatinine 1.9 on 11/14 Diabetes mellitus type 2--last HgbA1c checked 10/31 was 8.7 -Hold glipizide and home insulin regimen -Insulin sliding scale while inpt -Check BSGs q ac and qhs -Continue to monitor -At discharge, will resume glipizide and d/c ISS HTN--stable -Continue Toprol 25 mg PO qd HLD -Continue atorvastatin 40 mg PO qd and fenofibrate 48 mg PO qd BPH -Continue finasteride 5 mg PO qd DVT prophylaxis -Heparin 5000 units SC q8h Dispo -Pt came from home with services -Physical therapy recommending acute rehab again, not safe to return home. Pt would prefer rehab closer to his home in [place]. -Case management following. Pt agreed to [facility], however they do not have any male beds available. Agreed to [facility] which is able to accept Code Status -Level V, DO NOT RESUSCITATE Total Time Spent: Greater than 30 minutes This includes examination of the patient, discharge planning, medication reconciliation, and communication with other providers. (Briana Carreon ., PA-C) I agree with PA assessment and plan and have seen and examined pt myself Resting comfortably in bed Metabolic encephalopathy improved Hold off on further insulin at this time Pt stable for discharge Reviewed labs VSS (Norm Shah D.O.) Discharge Instructions Please refer to the electronic Patient Visit Report (Discharge Instructions) for additional information. (Briana Carreon ., PA-C) Additional Copies To [facility]
== END 2016-11-14 16:35 | DRG 682 ==
LOC: ENRESERVTM → ENRESERVDT → C.EDB 13:32 → EDBD 13:32 → C.2T 18:36 → C.MS4W 11-12 14:12 → CMPBEDREQ 11-12 14:13
PROVIDERS: ADMIT Family Medicine; ATTEND Hospitalist
DX: N17.9 Acute kidney failure, unspecified (principal); G93.41 Metabolic encephalopathy; E11.649 Type 2 diabetes mellitus with hypoglycemia without coma; Z66 Do not resuscitate; I12.9 Hypertensive chronic kidney disease with stage 1 through stage 4 chronic kidney disease, or unspecified chronic kidney disease; N18.3 Chronic kidney disease, stage 3 (moderate); Z86.19 Personal history of other infectious and parasitic diseases; Z87.891 Personal history of nicotine dependence; Z79.82 Long term (current) use of aspirin; Z79.4 Long term (current) use of insulin